=== PATIENT | male | born 1975 | race African-American/Black ===

== ENCOUNTER 2020-04-02 17:10 | Inpatient (IN) ==
[2020-04-02 18:28] LABS: Hematocrit 36 % (42-52); Hemoglobin 12.3 g/dL (14.0-18.0); Mean Corpuscular HGB Conc 34 g/dL (31-36); Mean Corpuscular Hemoglobin 29 pg (27-31); Mean Corpuscular Volume 85 fL (80-94); Mean Platelet Volume 7.9 fL (7.4-10.4); Platelet Count 361 10^3/uL (150-450); Red Blood Count 4.22 10^6 /uL (4.18-5.48); Red Cell Distribution Width 15 % (10-15); White Blood Count 22.4 10^3/uL (3.5-10.8)
[2020-04-02 18:37] LABS: INR 1.13 (0.82-1.09)
[2020-04-02 18:50] LABS: Troponin I 0.04 ng/mL (<0.03)
[2020-04-02 18:56] LABS: ALT 17 U/L (7-52); Albumin 2.8 g/dL (3.2-5.2); Albumin/Globulin Ratio 0.6 (1-3); Alkaline Phosphatase 80 U/L (34-104); BUN/Creatinine Ratio 26.4 (8-20); Blood Urea Nitrogen 28 mg/dL (6-24); CO2 Carbon Dioxide 23 mmol/L (22-32); Calcium 8.3 mg/dL (8.6-10.3); Chloride 105 mmol/L (101-111); EGFR African American 91.4 (>60); EGFR Non-African American 75.5 (>60); Globulin 4.8 g/dL (2-4); Glucose 101 mg/dL (70-100); Sodium 135 mmol/L (135-145); Total Protein 7.6 g/dL (6.4-8.9)
[2020-04-02 19:10] LABS: Anion Gap 7 mmol/L (2-11)
[2020-04-02 19:41] LABS: ABS Basophils 0.2 10^3/ul (0-0.2); ABS Eosinophils 0.3 10^3/ul (0-0.6); ABS Monocytes 2.2 10^3/ul (0-0.8); ABS Neutrophils 17.8 10^3/ul (1.5-7.7); Eosinophil % 1.4 %; Lymphocyte % 8.9 %
[2020-04-02] MEDS ORDERED: Furosemide 40 mg/4 ml IV VIAL IV ONE (21:42)
[2020-04-02] MEDS ORDERED: Piperacillin/Tazobac ADVAN 3.375 GM in NS 0.9% 100 ml BAG 100 ML IVPB ONE (21:43)
[2020-04-02] MEDS ORDERED: hydrALAZINE 20 mg/ml 1 ML Vial IV IV SLOW PU PRN (21:48)
[2020-04-02] MEDS ORDERED: Al Hydrox/Mg Hydrox/Simet LIQ 30 ML UDC PO PRN (21:49)
[2020-04-02] MEDS ORDERED: Zosyn per Pharmacy NOTE FOLLOW UP SCH (22:00)
[2020-04-02] MEDS ORDERED: Iohexol 350 (CONTRAST) 500 ML MDV IV ONE (22:41)
[2020-04-03] MEDS: Heparin 5000 UNITS/ML 1 mL VIAL SUBCUT SCH ×4 (00:56→20:57)
[2020-04-03] MEDS: Albuterol/Ipratropium NEB.SOL (2.5/0.5 MG) 3 ML NEB.SOLN INH PRN ×3 (01:18→19:19)
[2020-04-03] MEDS: ZOSYN 3.375 GM Q8H per EXTENDED INFUSION IV SCH ×3 (02:11→17:45)
[2020-04-03] MEDS: Labetalol IV 5 MG/ML 20 ml VIAL IV PUSH PRN ×2 (03:21→08:22)
[2020-04-03 04:00] LABS: Hematocrit 35 % (42-52); Hemoglobin 11.6 g/dL (14.0-18.0); Mean Corpuscular HGB Conc 33 g/dL (31-36); Mean Corpuscular Hemoglobin 28 pg (27-31); Mean Corpuscular Volume 85 fL (80-94); Mean Platelet Volume 7.7 fL (7.4-10.4); Platelet Count 377 10^3/uL (150-450); Red Cell Distribution Width 15 % (10-15); White Blood Count 21.9 10^3/uL (3.5-10.8)
[2020-04-03 04:05] LABS: ABS Basophils 0.1 10^3/ul (0-0.2); ABS Eosinophils 0.3 10^3/ul (0-0.6); ABS Lymphocytes 1.8 10^3/ul (1.0-4.8); ABS Monocytes 2.2 10^3/ul (0-0.8); ABS Neutrophils 17.5 10^3/ul (1.5-7.7); Eosinophil % 1.3 %; Lymphocyte % 8.2 %; Nucleated Red Blood Cells % 0.1
[2020-04-03 04:35] LABS: Troponin I 0.04 ng/mL (<0.03)
[2020-04-03 05:13] LABS: Potassium 4.1 mmol/L (3.5-5.0)
[2020-04-03 05:19] LABS: BUN/Creatinine Ratio 24.3 (8-20); EGFR African American 90.4 (>60); EGFR Non-African American 74.7 (>60)
[2020-04-03] MEDS: hydrALAZINE 20 mg/ml 1 ML Vial IV IV SLOW PU PRN ×3 (05:30→23:19)
[2020-04-03 08:36] LABS: Magnesium 2.4 mg/dL (1.9-2.7)
[2020-04-03] MEDS ORDERED: Furosemide 100 mg/10 ml IV VIAL ONE (11:21)
[2020-04-03 15:26] LABS: BUN/Creatinine Ratio 24.6 (8-20); Blood Urea Nitrogen 29 mg/dL (6-24); CO2 Carbon Dioxide 25 mmol/L (22-32); Calcium 8.2 mg/dL (8.6-10.3); Chloride 105 mmol/L (101-111); EGFR African American 80.8 (>60); EGFR Non-African American 66.8 (>60); Glucose 121 mg/dL (70-100); Magnesium 2.5 mg/dL (1.9-2.7); Sodium 136 mmol/L (135-145)
[2020-04-03] MEDS ORDERED: Furosemide 100 mg/10 ml IV VIAL IV ONE (18:18)
[2020-04-03 19:30] LABS: Anion Gap 6 mmol/L (2-11)
[2020-04-04] MEDS: ZOSYN 3.375 GM Q8H per EXTENDED INFUSION IV SCH ×3 (02:33→17:36)
[2020-04-04] MEDS: Heparin 5000 UNITS/ML 1 mL VIAL SUBCUT SCH ×3 (05:26→21:57)
[2020-04-04] MEDS: hydrALAZINE 20 mg/ml 1 ML Vial IV IV SLOW PU PRN ×3 (05:42→23:23)
[2020-04-04 06:36] LABS: ABS Basophils 0.1 10^3/ul (0-0.2); ABS Eosinophils 0.4 10^3/ul (0-0.6); ABS Lymphocytes 1.3 10^3/ul (1.0-4.8); ABS Monocytes 2.6 10^3/ul (0-0.8); ABS Neutrophils 19.9 10^3/ul (1.5-7.7); Eosinophil % 1.7 %; Hematocrit 35 % (42-52); Hemoglobin 11.8 g/dL (14.0-18.0); Lymphocyte % 5.5 %; Mean Corpuscular HGB Conc 34 g/dL (31-36); Mean Corpuscular Hemoglobin 29 pg (27-31); Mean Corpuscular Volume 86 fL (80-94); Nucleated Red Blood Cells % 0.1; Platelet Count 378 10^3/uL (150-450); Red Blood Count 4.08 10^6 /uL (4.18-5.48); Red Cell Distribution Width 15 % (10-15); White Blood Count 24.4 10^3/uL (3.5-10.8)
[2020-04-04 06:52] LABS: Potassium 5.1 mmol/L (3.5-5.0)
[2020-04-04 06:58] LABS: Calcium 7.8 mg/dL (8.6-10.3)
[2020-04-04 07:04] LABS: BUN/Creatinine Ratio 27.1 (8-20); EGFR African American 80.8 (>60); EGFR Non-African American 66.8 (>60)
[2020-04-04] MEDS ORDERED: Furosemide 40 mg/4 ml IV VIAL IV SLOW PU ONE (08:46)
[2020-04-04] MEDS: Albuterol/Ipratropium NEB.SOL (2.5/0.5 MG) 3 ML NEB.SOLN INH SCH ×3 (09:32→19:18)
[2020-04-04 09:34] LABS: Magnesium 2.4 mg/dL (1.9-2.7)
[2020-04-04] MEDS: methylPREDNISolone SOD 40 mg/ml 1 ml VIAL IV SCH ×2 (09:42→17:36)
[2020-04-04] MEDS ORDERED: Perflutren Lipid Microsphere 3 ML VIAL ONE (10:31)
[2020-04-04] MEDS: Labetalol IV 5 MG/ML 20 ml VIAL IV PUSH PRN (11:39)
[2020-04-04] MEDS ORDERED: Morphine 10 MG/ML VIAL (1 ml) IV ONE (11:50)
[2020-04-04] MEDS ORDERED: Morphine 10 MG/ML VIAL (1 ml) ONE (11:51)
[2020-04-04 18:16] LABS: BUN/Creatinine Ratio 27.9 (8-20); Calcium 8.3 mg/dL (8.6-10.3); EGFR African American 68.6 (>60); EGFR Non-African American 56.7 (>60)
[2020-04-04] MEDS: Albuterol/Ipratropium NEB.SOL (2.5/0.5 MG) 3 ML NEB.SOLN INH PRN (22:32)
[2020-04-05] MEDS: Albuterol/Ipratropium NEB.SOL (2.5/0.5 MG) 3 ML NEB.SOLN INH SCH ×4 (01:00→19:24)
[2020-04-05] MEDS: ZOSYN 3.375 GM Q8H per EXTENDED INFUSION IV SCH ×3 (01:33→17:42)
[2020-04-05] MEDS: methylPREDNISolone SOD 40 mg/ml 1 ml VIAL IV SCH ×3 (01:34→13:34)
[2020-04-05] MEDS: Heparin 5000 UNITS/ML 1 mL VIAL SUBCUT SCH ×3 (05:14→21:45)
[2020-04-05 05:37] LABS: Hematocrit 35 % (42-52); Hemoglobin 11.8 g/dL (14.0-18.0); Mean Corpuscular HGB Conc 33 g/dL (31-36); Mean Corpuscular Hemoglobin 29 pg (27-31); Mean Corpuscular Volume 86 fL (80-94); Mean Platelet Volume 7.9 fL (7.4-10.4); Platelet Count 370 10^3/uL (150-450); Red Blood Count 4.13 10^6 /uL (4.18-5.48); Red Cell Distribution Width 15 % (10-15); White Blood Count 26.2 10^3/uL (3.5-10.8)
[2020-04-05 05:41] LABS: ABS Basophils 0.1 10^3/ul (0-0.2); ABS Lymphocytes 0.8 10^3/ul (1.0-4.8); ABS Monocytes 1.7 10^3/ul (0-0.8); ABS Neutrophils 23.7 10^3/ul (1.5-7.7)
[2020-04-05 05:52] LABS: Albumin 2.7 g/dL (3.2-5.2); Albumin/Globulin Ratio 0.6 (1-3); BUN/Creatinine Ratio 29.7 (8-20); Calcium 8.3 mg/dL (8.6-10.3); EGFR African American 54.9 (>60); EGFR Non-African American 45.3 (>60); Globulin 4.7 g/dL (2-4); Magnesium 2.7 mg/dL (1.9-2.7); Total Bilirubin 0.3 mg/dL (0.2-1.0); Total Protein 7.4 g/dL (6.4-8.9)
[2020-04-05 06:13] LABS: Potassium 5.4 mmol/L (3.5-5.0)
[2020-04-05] MEDS: Azithromycin 500 mg/250 ml NS 500 MG/250 ML BAG IVPB SCH (11:05)
[2020-04-05] MEDS: Acetylcysteine INHALATION SOL 200 MG/ML NEB.SOLN 10 ML INH SCH ×2 (13:17→19:10)
[2020-04-05] MEDS ORDERED: Metoprolol Tartrate 5 mg VIAL 5 ml VIAL (1 mg/ml) IV ONE (15:56)
[2020-04-05] MEDS: Linezolid 600 MG IVPREMIX(*) 600 MG/300 ML BAG IVPB SCH (21:45)
[2020-04-06] MEDS: ZOSYN 3.375 GM Q8H per EXTENDED INFUSION IV SCH ×3 (02:01→16:56)
[2020-04-06] MEDS: methylPREDNISolone SOD 40 mg/ml 1 ml VIAL IV SCH (02:01)
[2020-04-06] MEDS: Acetylcysteine INHALATION SOL 200 MG/ML NEB.SOLN 10 ML INH SCH ×4 (02:05→20:14)
[2020-04-06] MEDS: Albuterol/Ipratropium NEB.SOL (2.5/0.5 MG) 3 ML NEB.SOLN INH SCH ×4 (02:05→20:13)
[2020-04-06] MEDS: Heparin 5000 UNITS/ML 1 mL VIAL SUBCUT SCH ×3 (06:00→21:12)
[2020-04-06 08:24] LABS: Hematocrit 35 % (42-52); Hemoglobin 11.6 g/dL (14.0-18.0); Mean Corpuscular HGB Conc 33 g/dL (31-36); Mean Corpuscular Hemoglobin 29 pg (27-31); Mean Corpuscular Volume 87 fL (80-94); Mean Platelet Volume 7.9 fL (7.4-10.4); Platelet Count 439 10^3/uL (150-450); Red Blood Count 4.03 10^6 /uL (4.18-5.48); Red Cell Distribution Width 15 % (10-15); White Blood Count 25.6 10^3/uL (3.5-10.8)
[2020-04-06 08:46] LABS: Albumin 2.7 g/dL (3.2-5.2); Albumin/Globulin Ratio 0.5 (1-3); BUN/Creatinine Ratio 36.9 (8-20); Calcium 8.4 mg/dL (8.6-10.3); EGFR African American 53.7 (>60); EGFR Non-African American 44.4 (>60); Magnesium 2.8 mg/dL (1.9-2.7); Potassium 4.9 mmol/L (3.5-5.0); Total Bilirubin 0.3 mg/dL (0.2-1.0); Total Protein 7.7 g/dL (6.4-8.9)
[2020-04-06] MEDS: Linezolid 600 MG IVPREMIX(*) 600 MG/300 ML BAG IVPB SCH ×2 (08:51→21:08)
[2020-04-06 09:01] LABS: ABS Basophils 0.2 10^3/ul (0-0.2); ABS Lymphocytes 0.9 10^3/ul (1.0-4.8); ABS Monocytes 2.1 10^3/ul (0-0.8); ABS Neutrophils 22.5 10^3/ul (1.5-7.7); Eosinophil % 0.1 %; Lymphocyte % 3.3 %
[2020-04-06] MEDS: Azithromycin 500 mg/250 ml NS 500 MG/250 ML BAG IVPB SCH (11:03)
[2020-04-06] MEDS: hydrALAZINE 20 mg/ml 1 ML Vial IV IV SLOW PU PRN ×2 (15:57→19:50)
[2020-04-06] MEDS: Metoprolol Tartrate 5 mg VIAL 5 ml VIAL (1 mg/ml) IV PRN (17:26)
[2020-04-07] MEDS: hydrALAZINE 20 mg/ml 1 ML Vial IV IV SLOW PU PRN (00:22)
[2020-04-07] MEDS: ZOSYN 3.375 GM Q8H per EXTENDED INFUSION IV SCH ×3 (01:20→18:19)
[2020-04-07] MEDS: Heparin 5000 UNITS/ML 1 mL VIAL SUBCUT SCH ×3 (05:36→22:53)
[2020-04-07 05:58] LABS: Hematocrit 34 % (42-52); Mean Corpuscular HGB Conc 33 g/dL (31-36); Mean Corpuscular Hemoglobin 28 pg (27-31); Mean Corpuscular Volume 86 fL (80-94); Mean Platelet Volume 8.1 fL (7.4-10.4); Platelet Count 437 10^3/uL (150-450); Red Blood Count 3.92 10^6 /uL (4.18-5.48); Red Cell Distribution Width 15 % (10-15)
[2020-04-07 06:04] LABS: ABS Basophils 0.1 10^3/ul (0-0.2); ABS Eosinophils 0.1 10^3/ul (0-0.6); ABS Lymphocytes 1.4 10^3/ul (1.0-4.8); ABS Monocytes 2.8 10^3/ul (0-0.8); ABS Neutrophils 14.7 10^3/ul (1.5-7.7); Eosinophil % 0.5 %; Lymphocyte % 7.2 %
[2020-04-07] MEDS: Metoprolol Tartrate 5 mg VIAL 5 ml VIAL (1 mg/ml) IV PRN (06:06)
[2020-04-07] MEDS: Albuterol/Ipratropium NEB.SOL (2.5/0.5 MG) 3 ML NEB.SOLN INH SCH ×4 (06:13→19:29)
[2020-04-07] MEDS: Acetylcysteine INHALATION SOL 200 MG/ML NEB.SOLN 10 ML INH SCH ×4 (06:13→19:29)
[2020-04-07 06:14] LABS: Albumin 2.5 g/dL (3.2-5.2); Calcium 8.3 mg/dL (8.6-10.3); Magnesium 3.1 mg/dL (1.9-2.7); Potassium 4.6 mmol/L (3.5-5.0); Total Bilirubin 0.3 mg/dL (0.2-1.0)
[2020-04-07 06:20] LABS: Albumin/Globulin Ratio 0.6 (1-3); BUN/Creatinine Ratio 45.1 (8-20); EGFR African American 64.2 (>60); Globulin 4.5 g/dL (2-4); Phosphorus 4.9 mg/dL (2.5-5.0)
[2020-04-07] MEDS: Linezolid 600 MG IVPREMIX(*) 600 MG/300 ML BAG IVPB SCH ×2 (08:46→20:46)
[2020-04-07] MEDS: Azithromycin 500 mg/250 ml NS 500 MG/250 ML BAG IVPB SCH (11:13)
[2020-04-08] MEDS: hydrALAZINE 20 mg/ml 1 ML Vial IV IV SLOW PU PRN ×2 (00:26→10:38)
[2020-04-08] MEDS: Acetylcysteine INHALATION SOL 200 MG/ML NEB.SOLN 10 ML INH SCH ×4 (01:44→19:00)
[2020-04-08] MEDS: Albuterol/Ipratropium NEB.SOL (2.5/0.5 MG) 3 ML NEB.SOLN INH SCH ×4 (01:44→19:00)
[2020-04-08] MEDS: ZOSYN 3.375 GM Q8H per EXTENDED INFUSION IV SCH ×3 (02:26→18:39)
[2020-04-08 04:47] LABS: Hematocrit 33 % (42-52); Hemoglobin 10.9 g/dL (14.0-18.0); Mean Corpuscular HGB Conc 33 g/dL (31-36); Mean Corpuscular Hemoglobin 29 pg (27-31); Mean Corpuscular Volume 86 fL (80-94); Mean Platelet Volume 8.1 fL (7.4-10.4); Platelet Count 421 10^3/uL (150-450); Red Blood Count 3.79 10^6 /uL (4.18-5.48); Red Cell Distribution Width 15 % (10-15); White Blood Count 19.2 10^3/uL (3.5-10.8)
[2020-04-08 05:03] LABS: ALT 61 U/L (7-52); AST 42 U/L (13-39); Albumin 2.6 g/dL (3.2-5.2); Albumin/Globulin Ratio 0.6 (1-3); Alkaline Phosphatase 71 U/L (34-104); Anion Gap 5 mmol/L (2-11); BUN/Creatinine Ratio 40.9 (8-20); Blood Urea Nitrogen 52 mg/dL (6-24); CO2 Carbon Dioxide 25 mmol/L (22-32); Chloride 109 mmol/L (101-111); EGFR African American 74.2 (>60); EGFR Non-African American 61.3 (>60); Globulin 4.2 g/dL (2-4); Glucose 110 mg/dL (70-100); Magnesium 3.1 mg/dL (1.9-2.7); Phosphorus 4.2 mg/dL (2.5-5.0); Rheumatoid Factor < 10 IU/mL (<15); Sodium 139 mmol/L (135-145); Total Protein 6.8 g/dL (6.4-8.9)
[2020-04-08 05:40] LABS: HIV 4th Generation Nonreactive (Nonreactive)
[2020-04-08] MEDS: Heparin 5000 UNITS/ML 1 mL VIAL SUBCUT SCH ×3 (06:00→21:25)
[2020-04-08] MEDS ORDERED: Rocuronium 50 mg VIAL 10 mg/ml 5 ml VIAL (50 mg) ONE ×2 (08:15→09:22)
[2020-04-08 08:55] LABS: ABS Basophils 0.1 10^3/ul (0-0.2); ABS Eosinophils 0.2 10^3/ul (0-0.6); ABS Lymphocytes 2.1 10^3/ul (1.0-4.8); ABS Monocytes 2.8 10^3/ul (0-0.8); Lymphocyte % 10.9 %
[2020-04-08] MEDS: Linezolid 600 MG IVPREMIX(*) 600 MG/300 ML BAG IVPB SCH ×2 (09:33→21:22)
[2020-04-08] MEDS ORDERED: Midazolam 2 mg/2 ml VIAL 1 mg/ml 2 ml VIAL (2 mg) ONE (10:14)
[2020-04-08] MEDS: Azithromycin 500 mg/250 ml NS 500 MG/250 ML BAG IVPB SCH (11:25)
[2020-04-08] MEDS ORDERED: Glycopyrrolate IV 0.2 MG/ML 1 ML VIAL ONE (12:08)
[2020-04-08] MEDS ORDERED: Lidocaine 2% PF 10 ML AMP ONE ×3 (12:12→12:46)
[2020-04-08] MEDS ORDERED: Propofol 10 MG/ML 20 ML BTL ONE (12:16)
[2020-04-08] MEDS ORDERED: Benzocaine/Butamben/Tetracain (CETACAINE - SINGLE USE) 5 gm TOPICAL ONE (12:46)
[2020-04-08] MEDS ORDERED: Lidocaine 2% JELLY 20 ML (for OR use) ONE (12:46)
[2020-04-08] MEDS ORDERED: Lidocaine 1% VIAL 10 MG/ML VIAL ONE (12:46)
[2020-04-08] MEDS ORDERED: Sugammadex 500 MG/5 ML 5 ml VIAL IV PUSH ONE (15:05)
[2020-04-08] MEDS ORDERED: Ondansetron 4 mg VIAL 2 MG/ML 2 ml VIAL ONE (15:05)
[2020-04-08 23:59] LABS: Adenovirus Negative (Negative); Bordetella parapertussis Negative (Negative); Bordetella pertussis Negative (Negative); Chlamydophila pneumoniae Negative (Negative); Coronavirus 229E Negative (Negative); Coronavirus HKU1 Negative (Negative); Coronavirus NL63 Negative (Negative); Coronavirus OC43 Negative (Negative); Human Metapneumovirus Negative (Negative); Human Rhinovirus/ Enterovirus Negative (Negative); Influenza A Negative (Negative); Influenza B Negative (Negative); Mycoplasmoides pneumoniae Negative (Negative); Parainfluenza Virus 1 Negative (Negative); Parainfluenza Virus 2 Negative (Negative); Parainfluenza Virus 3 Negative (Negative); Parainfluenza Virus 4 Negative (Negative); Respiratory Syncytial Virus Negative (Negative); Specimen Source NASOPHARYNGEAL SWAB
[2020-04-09] MEDS: Acetylcysteine INHALATION SOL 200 MG/ML NEB.SOLN 10 ML INH SCH ×2 (01:21→07:31)
[2020-04-09] MEDS: Albuterol/Ipratropium NEB.SOL (2.5/0.5 MG) 3 ML NEB.SOLN INH SCH ×4 (01:21→19:16)
[2020-04-09] MEDS: ZOSYN 3.375 GM Q8H per EXTENDED INFUSION IV SCH ×3 (02:03→17:27)
[2020-04-09] MEDS: Heparin 5000 UNITS/ML 1 mL VIAL SUBCUT SCH ×2 (04:57→13:33)
[2020-04-09 06:24] LABS: Hematocrit 32 % (42-52); Hemoglobin 10.4 g/dL (14.0-18.0); Mean Corpuscular HGB Conc 33 g/dL (31-36); Mean Corpuscular Hemoglobin 29 pg (27-31); Mean Corpuscular Volume 88 fL (80-94); Platelet Count 388 10^3/uL (150-450); Red Blood Count 3.64 10^6 /uL (4.18-5.48); Red Cell Distribution Width 15 % (10-15); White Blood Count 17.1 10^3/uL (3.5-10.8)
[2020-04-09 06:41] LABS: ABS Basophils 0.1 10^3/ul (0-0.2); ABS Eosinophils 0.4 10^3/ul (0-0.6); ABS Monocytes 2.3 10^3/ul (0-0.8); ABS Neutrophils 12.3 10^3/ul (1.5-7.7); Albumin 2.4 g/dL (3.2-5.2); Albumin/Globulin Ratio 0.6 (1-3); BUN/Creatinine Ratio 33.1 (8-20); Calcium 7.5 mg/dL (8.6-10.3); EGFR African American 72.2 (>60); EGFR Non-African American 59.7 (>60); Eosinophil % 2.1 %; Globulin 4.1 g/dL (2-4); Lymphocyte % 11.9 %; Magnesium 2.9 mg/dL (1.9-2.7); Phosphorus 3.9 mg/dL (2.5-5.0); Potassium 4.5 mmol/L (3.5-5.0); Total Bilirubin 0.2 mg/dL (0.2-1.0); Total Protein 6.5 g/dL (6.4-8.9)
[2020-04-09] MEDS ORDERED: Calcium Gluconate 1 GM in NS 0.9% 50 ML 50 ML IV ONE (08:31)
[2020-04-09] MEDS: Linezolid 600 MG IVPREMIX(*) 600 MG/300 ML BAG IVPB SCH (09:02)
[2020-04-09 09:15] LABS: Body Fluid Source OTH
[2020-04-09] MEDS: hydrALAZINE 20 mg/ml 1 ML Vial IV IV SLOW PU PRN (09:20)
[2020-04-09 10:29] LABS: Body Fluid Mono 17 %; Body Fluid Other Cells 25
[2020-04-09] MEDS: Azithromycin 500 mg/250 ml NS 500 MG/250 ML BAG IVPB SCH (10:43)
[2020-04-09 15:28] LABS: Anti SSA/RO Antibody 3.1 U; SS-B/La Antibody 0.2 U; Sm (Smith) IgG Antibody <0.2 U
[2020-04-09] MEDS: Metoprolol Tartrate 5 mg VIAL 5 ml VIAL (1 mg/ml) IV PRN (18:09)
[2020-04-10] MEDS: Linezolid 600 MG IVPREMIX(*) 600 MG/300 ML BAG IVPB SCH (00:03)
[2020-04-10] MEDS: Heparin 5000 UNITS/ML 1 mL VIAL SUBCUT SCH ×4 (00:06→21:38)
[2020-04-10] MEDS: Albuterol/Ipratropium NEB.SOL (2.5/0.5 MG) 3 ML NEB.SOLN INH SCH ×2 (01:03→08:08)
[2020-04-10] MEDS: ZOSYN 3.375 GM Q8H per EXTENDED INFUSION IV SCH ×2 (01:22→10:34)
[2020-04-10 05:51] LABS: Hematocrit 33 % (42-52); Hemoglobin 10.9 g/dL (14.0-18.0); Mean Corpuscular HGB Conc 33 g/dL (31-36); Mean Corpuscular Hemoglobin 29 pg (27-31); Mean Corpuscular Volume 87 fL (80-94); Mean Platelet Volume 7.7 fL (7.4-10.4); Platelet Count 389 10^3/uL (150-450); Red Blood Count 3.78 10^6 /uL (4.18-5.48); Red Cell Distribution Width 15 % (10-15); White Blood Count 22.2 10^3/uL (3.5-10.8)
[2020-04-10 06:08] LABS: Albumin 2.6 g/dL (3.2-5.2); Albumin/Globulin Ratio 0.6 (1-3); BUN/Creatinine Ratio 29.4 (8-20); EGFR African American 74.9 (>60); EGFR Non-African American 61.9 (>60); Globulin 4.1 g/dL (2-4); Potassium 4.7 mmol/L (3.5-5.0); Total Bilirubin 0.3 mg/dL (0.2-1.0); Total Protein 6.7 g/dL (6.4-8.9)
[2020-04-10 06:22] LABS: ABS Basophils 0.1 10^3/ul (0-0.2); ABS Eosinophils 0.5 10^3/ul (0-0.6); ABS Lymphocytes 2.6 10^3/ul (1.0-4.8); ABS Monocytes 2.6 10^3/ul (0-0.8); ABS Neutrophils 16.4 10^3/ul (1.5-7.7); Eosinophil % 2.2 %; Lymphocyte % 11.8 %
[2020-04-10] MEDS ORDERED: Albuterol 2.5mg/3 ml (0.083%) NEB.SOLN INH PRN (08:02)
[2020-04-10] MEDS: SPIRIVA Respimat (tiotropium) 2.5 mcg/inh Inhaler INH SCH (08:34)
[2020-04-10] MEDS ORDERED: Linezolid 600 MG IVPREMIX(*) 600 MG/300 ML BAG IVPB SCH (12:00)
[2020-04-10] MEDS: Furosemide 40 mg/4 ml IV VIAL IV SLOW PU SCH (12:18)
[2020-04-10 12:28] LABS: Cyclic Citrullinated Pept IgG <15.6 U
[2020-04-11] MEDS: Heparin 5000 UNITS/ML 1 mL VIAL SUBCUT SCH ×3 (05:28→22:00)
[2020-04-11 05:40] LABS: Hematocrit 34 % (42-52); Hemoglobin 10.9 g/dL (14.0-18.0); Mean Corpuscular HGB Conc 32 g/dL (31-36); Mean Corpuscular Hemoglobin 28 pg (27-31); Mean Corpuscular Volume 87 fL (80-94); Mean Platelet Volume 7.7 fL (7.4-10.4); Platelet Count 368 10^3/uL (150-450); Red Blood Count 3.89 10^6 /uL (4.18-5.48); Red Cell Distribution Width 15 % (10-15); White Blood Count 18.6 10^3/uL (3.5-10.8)
[2020-04-11 05:57] LABS: Albumin 2.7 g/dL (3.2-5.2); Albumin/Globulin Ratio 0.7 (1-3); BUN/Creatinine Ratio 27.4 (8-20); Calcium 8.1 mg/dL (8.6-10.3); EGFR African American 81.6 (>60); EGFR Non-African American 67.4 (>60); Magnesium 2.7 mg/dL (1.9-2.7); Potassium 4.8 mmol/L (3.5-5.0); Total Bilirubin 0.3 mg/dL (0.2-1.0); Total Protein 6.7 g/dL (6.4-8.9)
[2020-04-11 06:02] LABS: ABS Basophils 0.1 10^3/ul (0-0.2); ABS Eosinophils 0.5 10^3/ul (0-0.6); ABS Lymphocytes 2.5 10^3/ul (1.0-4.8); ABS Monocytes 2.3 10^3/ul (0-0.8); ABS Neutrophils 13.2 10^3/ul (1.5-7.7); Eosinophil % 2.6 %; Lymphocyte % 13.4 %
[2020-04-11] MEDS: SPIRIVA Respimat (tiotropium) 2.5 mcg/inh Inhaler INH SCH (07:31)
[2020-04-11] MEDS: Furosemide 40 mg/4 ml IV VIAL IV SLOW PU SCH ×2 (07:49→08:43)
[2020-04-11] MEDS ORDERED: hydrALAZINE 20 mg/ml 1 ML Vial IV IV SLOW PU ONE (17:38)
[2020-04-11] MEDS: Metoprolol Tartrate 5 mg VIAL 5 ml VIAL (1 mg/ml) IV PRN (18:59)
[2020-04-12] MEDS: Heparin 5000 UNITS/ML 1 mL VIAL SUBCUT SCH ×3 (05:30→21:18)
[2020-04-12 05:57] LABS: BUN/Creatinine Ratio 23.9 (8-20); Calcium 8.4 mg/dL (8.6-10.3); EGFR African American 81.6 (>60); EGFR Non-African American 67.4 (>60); Potassium 4.6 mmol/L (3.5-5.0)
[2020-04-12] MEDS: SPIRIVA Respimat (tiotropium) 2.5 mcg/inh Inhaler INH SCH (07:10)
[2020-04-12] MEDS: Furosemide 40 mg/4 ml IV VIAL IV SLOW PU SCH ×3 (07:18→14:13)
[2020-04-12] MEDS: Metoprolol Tartrate 5 mg VIAL 5 ml VIAL (1 mg/ml) IV PRN (12:11)
[2020-04-12] MEDS ORDERED: hydrALAZINE 20 mg/ml 1 ML Vial IV IV SLOW PU ONE (13:28)
[2020-04-12 15:42] LABS: Urine Appearance Clear; Urine Bilirubin Negative (Negative); Urine Blood 3+ (Negative); Urine Color Straw; Urine Glucose Negative (Negative); Urine Ketones Negative (Negative); Urine Nitrite Negative (Negative); Urine Protein 2+(100 mg/dL) (Negative); Urine Specific Gravity 1.006 (1.010-1.030); Urine Urobilinogen Negative (Negative)
[2020-04-12 15:47] LABS: Urine Bacteria Absent (Absent); Urine Red Blood Cell 3+(>10/hpf) (Absent); Urine Squamous Epithelial Cell Present (Absent); Urine White Blood Cell 3+(>20/hpf) (Absent)
[2020-04-12] MEDS ORDERED: hydrALAZINE 20 mg/ml 1 ML Vial IV IV SLOW PU PRN (17:15)
[2020-04-12 17:18] LABS: Magnesium 2.6 mg/dL (1.9-2.7)
[2020-04-12 20:29] LABS: BUN/Creatinine Ratio 23.5 (8-20); Calcium 8.1 mg/dL (8.6-10.3); EGFR Non-African American 66.1 (>60); Magnesium 2.3 mg/dL (1.9-2.7); Potassium 4.3 mmol/L (3.5-5.0)
[2020-04-13] MEDS: Heparin 5000 UNITS/ML 1 mL VIAL SUBCUT SCH ×3 (05:37→22:04)
[2020-04-13] MEDS: SPIRIVA Respimat (tiotropium) 2.5 mcg/inh Inhaler INH SCH (07:54)
[2020-04-13] MEDS: Furosemide 40 mg/4 ml IV VIAL IV SLOW PU SCH ×2 (07:55→14:06)
[2020-04-13 10:38] LABS: TSH Ultra Thyroid Stim Horm 3.83 mcIU/mL (0.34-5.60)
[2020-04-13 10:39] LABS: Free T3 2.8 pg/mL (2.5-3.9)
[2020-04-13 10:40] LABS: Free T4 0.98 ng/dL (0.61-1.12)
[2020-04-14] MEDS: Heparin 5000 UNITS/ML 1 mL VIAL SUBCUT SCH ×3 (05:35→22:22)
[2020-04-14 06:27] LABS: BUN/Creatinine Ratio 22.8 (8-20); Calcium 7.6 mg/dL (8.6-10.3); EGFR African American 96.7 (>60); EGFR Non-African American 79.9 (>60); Magnesium 1.8 mg/dL (1.9-2.7); Potassium 3.8 mmol/L (3.5-5.0)
[2020-04-14] MEDS ORDERED: Magnesium Sulfate 2 gm BAG 2 GM/50 ML BAG IVPB ONE (06:39)
[2020-04-14] MEDS ORDERED: Potassium Chlor 20 meq TAB.ER PO ONE (06:39)
[2020-04-14 08:33] LABS: Troponin I 0.01 ng/mL (<0.03)
[2020-04-14] MEDS: SPIRIVA Respimat (tiotropium) 2.5 mcg/inh Inhaler INH SCH (08:49)
[2020-04-14] MEDS: Furosemide 40 mg/4 ml IV VIAL IV SLOW PU SCH ×2 (09:50→15:13)
[2020-04-14 11:06] LABS: HDL Cholesterol 31.2 mg/dL
[2020-04-15] MEDS: Heparin 5000 UNITS/ML 1 mL VIAL SUBCUT SCH ×3 (05:46→22:40)
[2020-04-15 06:15] LABS: Hematocrit 35 % (42-52); Hemoglobin 11.4 g/dL (14.0-18.0); Mean Corpuscular HGB Conc 33 g/dL (31-36); Mean Corpuscular Hemoglobin 28 pg (27-31); Mean Corpuscular Volume 86 fL (80-94); Mean Platelet Volume 7.8 fL (7.4-10.4); Platelet Count 361 10^3/uL (150-450); Red Blood Count 4.04 10^6 /uL (4.18-5.48); Red Cell Distribution Width 15 % (10-15); White Blood Count 20.5 10^3/uL (3.5-10.8)
[2020-04-15 06:21] LABS: ABS Basophils 0.1 10^3/ul (0-0.2); ABS Eosinophils 0.3 10^3/ul (0-0.6); ABS Lymphocytes 3.8 10^3/ul (1.0-4.8); ABS Monocytes 2.3 10^3/ul (0-0.8); Eosinophil % 1.5 %; Lymphocyte % 18.4 %
[2020-04-15 06:37] LABS: BUN/Creatinine Ratio 22.9 (8-20); Calcium 8.3 mg/dL (8.6-10.3); EGFR African American 92.4 (>60); EGFR Non-African American 76.4 (>60); Magnesium 2.3 mg/dL (1.9-2.7)
[2020-04-15] MEDS: SPIRIVA Respimat (tiotropium) 2.5 mcg/inh Inhaler INH SCH (08:04)
[2020-04-15] MEDS ORDERED: Aminophylline 25 MG/ML VIAL ONE (11:11)
[2020-04-15] MEDS ORDERED: Regadenoson 0.4 MG/5 ML SYRINGE ONE (11:11)
[2020-04-15] MEDS: Furosemide 40 mg/4 ml IV VIAL IV SLOW PU SCH ×2 (13:14→13:16)
[2020-04-15 16:31] LABS: Plasma Free Metanephrine 0.2 nmol/L (<0.50); Plasma Free Normetanephrine 0.51 nmol/L (<0.90)
[2020-04-15] MEDS ORDERED: Aspirin EC 81 mg TAB.EC (enteric coated) PO SCH (19:00)
[2020-04-15] MEDS: Aspirin EC 81 mg TAB.EC (enteric coated) PO SCH (22:40)
[2020-04-16] MEDS: Heparin 5000 UNITS/ML 1 mL VIAL SUBCUT SCH ×3 (06:32→20:24)
[2020-04-16 06:58] LABS: BUN/Creatinine Ratio 21.8 (8-20); Calcium 8.4 mg/dL (8.6-10.3); EGFR Non-African American 66.1 (>60); Magnesium 2.1 mg/dL (1.9-2.7); Potassium 3.8 mmol/L (3.5-5.0)
[2020-04-16] MEDS: Aspirin EC 81 mg TAB.EC (enteric coated) PO SCH (08:19)
[2020-04-16] MEDS: SPIRIVA Respimat (tiotropium) 2.5 mcg/inh Inhaler INH SCH (10:03)
[2020-04-17] MEDS: Heparin 5000 UNITS/ML 1 mL VIAL SUBCUT SCH (05:23)
[2020-04-17] MEDS: Aspirin EC 81 mg TAB.EC (enteric coated) PO SCH (09:18)
[2020-04-17] MEDS: SPIRIVA Respimat (tiotropium) 2.5 mcg/inh Inhaler INH SCH (09:32)
[2020-04-17 12:16] VITALS: BP 143/75
== END 2020-04-17 12:31 | disposition home or self-care (01) | DRG 139 ==
LOC: ED 17:10 → ICU 21:49 → MEDTELE 04-09 21:23
PROVIDERS: ADMIT Internal Medicine; ATTEND Internal Medicine

== ENCOUNTER 2020-09-16 06:30 | Inpatient (IN) ==
[~2020-09-16 06:30] MED LIST: Buffered Lidocaine 1% SYRIN 1 ml INTRADERM ONE; Lactated Ringers 1000 ml BAG 1,000 ML IV SCH
[2020-09-16] MEDS ORDERED: Rocuronium 50 mg VIAL 10 mg/ml 5 ml VIAL (50 mg) ONE ×2 (06:53→08:33)
[2020-09-16] MEDS ORDERED: fentaNYL 250 mcg/5 ml 50 MCG/ML 5 ml VIAL (250 MCG) ONE (06:53)
[2020-09-16] MEDS ORDERED: Midazolam 2 mg/2 ml VIAL 1 mg/ml 2 ml VIAL (2 mg) ONE (06:53)
[2020-09-16] MEDS ORDERED: Lidocaine 2% PF 5 ML VIAL ONE (06:53)
[2020-09-16] MEDS ORDERED: Succinylcholine 200 mg VIAL 20 mg/ml 10 ml VIAL (200 mg) ONE (06:53)
[2020-09-16] MEDS ORDERED: Propofol 10 MG/ML 20 ML BTL ONE (06:53)
[2020-09-16] MEDS ORDERED: ceFAZolin 1 GM ADVAN 1 GM ADDV.VIAL IVPB ONE (06:58)
[2020-09-16] MEDS ORDERED: Heparin 5000 UNITS/ML 1 mL VIAL ONE (06:58)
[2020-09-16] MEDS ORDERED: ceFAZolin 2 GM PREMIX 2 GM/50 ML BAG ONE (06:58)
[2020-09-16] MEDS ORDERED: Bupivacaine 0.5% SDV PF 30ML VIAL ONE (07:06)
[2020-09-16] MEDS ORDERED: Ketamine HCL 50 mg/ml 10 ml VIAL (500 MG) ONE (08:17)
[2020-09-16] MEDS ORDERED: Phenylephrine 40 mcg/mL 10mL (400mcg) SYRINGE ONE (08:24)
[2020-09-16] MEDS ORDERED: Phenylephrine IV 10 MG/ML 1 ml VIAL ONE ×2 (08:39→11:16)
[2020-09-16] MEDS ORDERED: EPHEDrine (Pressors) 50 MG/ML VIAL ONE (08:41)
[2020-09-16] MEDS ORDERED: Remifentanil 2 MG VIAL ONE (10:01)
[2020-09-16] MEDS ORDERED: HYDROcodone/ACETAMIN 5/325 mg TAB PO PRN ×2 (10:37→18:17)
[2020-09-16] MEDS ORDERED: Ondansetron 4 mg VIAL 2 MG/ML 2 ml VIAL IV PRN (10:37)
[2020-09-16] MEDS ORDERED: Dextrose 50% Syringe 50 ml 25 GM/50 ML SYRINGE IV PUSH PRN (11:06)
[2020-09-16] MEDS ORDERED: Insulin GLARGINE 100 un/ml 10 ml VIAL SUBCUT ONE (11:17)
[2020-09-16] MEDS ORDERED: ceFAZolin VIAL VIAL ONE ×2 (13:01)
[2020-09-16] MEDS ORDERED: HYDROmorphone 1 MG/1 ML SYRINGE ONE (14:33)
[2020-09-16] MEDS ORDERED: Ondansetron 4 mg VIAL 2 MG/ML 2 ml VIAL ONE (15:20)
[2020-09-16] MEDS ORDERED: Lidocaine 2% JELLY 6 ML TOPICAL ONE (15:29)
[2020-09-16] MEDS ORDERED: Furosemide 20 mg/2 ml IV VIAL ONE (15:32)
[2020-09-16] MEDS ORDERED: fentaNYL 100 mcg/2 ml 50 MCG/ML VIAL IV PRN (15:52)
[2020-09-16] MEDS ORDERED: diPHENhydraMINE IV 50 MG/ML 1 ml VIAL (BENADRYL) IV PRN (15:52)
[2020-09-16] MEDS ORDERED: Naloxone 0.4 mg VIAL 0.4 mg/ml 1 ml VIAL IV PRN (15:52)
[2020-09-16] MEDS ORDERED: fentaNYL 100 mcg/2 ml 50 MCG/ML VIAL ONE (16:27)
[2020-09-16] MEDS: Heparin 5000 UNITS/ML 1 mL VIAL SUBCUT SCH (22:31)
[2020-09-16] MEDS: Lactated Ringers 1000 ml BAG 1,000 ML IV SCH (22:31)
[2020-09-16] MEDS: ceFAZolin 2 GM PREMIX 2 GM/50 ML BAG IVPB SCH (22:31)
[2020-09-17 04:51] LABS: BUN/Creatinine Ratio 14.3 (8-20); Calcium 8.4 mg/dL (8.6-10.3); EGFR African American 92.4 (>60); EGFR Non-African American 76.4 (>60); Potassium 3.8 mmol/L (3.5-5.0)
[2020-09-17] MEDS: ceFAZolin 2 GM PREMIX 2 GM/50 ML BAG IVPB SCH (05:12)
[2020-09-17] MEDS: Heparin 5000 UNITS/ML 1 mL VIAL SUBCUT SCH (05:14)
[2020-09-17 05:43] LABS: ABS Basophils 0.1 10^3/ul (0-0.2); ABS Eosinophils 0.2 10^3/ul (0-0.6); ABS Lymphocytes 1.9 10^3/ul (1.0-4.8); ABS Monocytes 1.3 10^3/ul (0-0.8); ABS Neutrophils 14.2 10^3/ul (1.5-7.7); Hematocrit 36 % (42-52); Hemoglobin 11.8 g/dL (14.0-18.0); Mean Corpuscular HGB Conc 33 g/dL (31-36); Mean Corpuscular Hemoglobin 29 pg (27-31); Mean Corpuscular Volume 88 fL (80-94); Mean Platelet Volume 7.5 fL (7.4-10.4); Platelet Count 443 10^3/uL (150-450); Red Blood Count 4.14 10^6 /uL (4.18-5.48); Red Cell Distribution Width 17 % (10-15); White Blood Count 17.6 10^3/uL (3.5-10.8)
[2020-09-17] MEDS: Lactated Ringers 1000 ml BAG 1,000 ML IV SCH (07:42)
[2020-09-17] MEDS ORDERED: Aspirin EC 81 mg TAB.EC (enteric coated) PO SCH (09:00)
[2020-09-17 11:27] VITALS: BP 135/65
== END 2020-09-17 12:20 | disposition home or self-care (01) | DRG 362 ==
LOC: OR 06:30 → SSU 10:38
PROVIDERS: ADMIT Student in an Organized Health Care Education/Training Program; ATTEND Student in an Organized Health Care Education/Training Program

== ENCOUNTER 2021-09-13 13:48 | Inpatient (IN) ==
[2021-09-13] MEDS ORDERED: Gadoteridol (CONTRAST) 279.3 MG/ML 10 ML IV ONE (19:45)
[2021-09-13 20:42] LABS: Urine Appearance Cloudy; Urine Bilirubin Negative (Negative); Urine Blood Negative (Negative); Urine Color Yellow; Urine Glucose Negative (Negative); Urine Ketones Negative (Negative); Urine Nitrite Negative (Negative); Urine Protein Negative (Negative); Urine Specific Gravity 1.013 (1.002-1.030); Urine Urobilinogen Positive (Negative)
[2021-09-13 21:06] LABS: ABS Basophils 0.1 10^3/ul (0-0.2); ABS Eosinophils 0.3 10^3/ul (0-0.6); ABS Lymphocytes 0.4 10^3/ul (1.0-4.8); ABS Monocytes 0.7 10^3/ul (0-0.8); ABS Neutrophils 7.2 10^3/ul (1.5-7.7); Eosinophil % 3.7 %; Hematocrit 30 % (42-52); Hemoglobin 10.4 g/dL (14.0-18.0); Mean Corpuscular HGB Conc 35 g/dL (31-36); Mean Corpuscular Hemoglobin 30 pg (27-31); Mean Corpuscular Volume 86 fL (80-94); Nucleated Red Blood Cells % 0.2; Platelet Count 382 10^3/uL (150-450); Red Cell Distribution Width 17 % (10-15); White Blood Count 8.7 10^3/uL (3.5-10.8)
[2021-09-13 21:17] LABS: INR 1.2 (0.86-1.15)
[2021-09-13 21:25] LABS: Albumin 3.3 g/dL (3.2-5.2); Albumin/Globulin Ratio 0.8 (1-3); Calcium 10.9 mg/dL (8.6-10.3); Globulin 4.4 g/dL (2-4); Potassium 3.6 mmol/L (3.5-5.0); Total Bilirubin 0.3 mg/dL (0.2-1.0); Total Protein 7.7 g/dL (6.4-8.9); eGFR CKD-EPI 97.5 (>60)
[2021-09-13] MEDS ORDERED: Morphine 2 MG/ML SYRINGE IV PRN (21:40)
[2021-09-13] MEDS ORDERED: fentaNYL PATCH 50 MCG/HR 1 PATCH TRANSDERM SCH (22:00)
[2021-09-13 22:32] LABS: Troponin I 0.01 ng/mL (<0.03)
[2021-09-13] MEDS ORDERED: Dextrose 50% Syringe 50 ml 25 GM/50 ML SYRINGE IV PUSH PRN (22:51)
[2021-09-14] MEDS: Heparin 5000 UNITS/ML 1 mL VIAL SUBCUT SCH ×4 (00:58→21:44)
[2021-09-14] MEDS ORDERED: hydrALAZINE 20 mg/ml 1 ML Vial IV IV SLOW PU ONE (03:35)
[2021-09-14 05:18] LABS: Hematocrit 32 % (42-52); Hemoglobin 10.9 g/dL (14.0-18.0); Mean Corpuscular HGB Conc 34 g/dL (31-36); Mean Corpuscular Hemoglobin 29 pg (27-31); Mean Corpuscular Volume 85 fL (80-94); Mean Platelet Volume 7.1 fL (7.4-10.4); Platelet Count 409 10^3/uL (150-450); Red Blood Count 3.77 10^6 /uL (4.18-5.48); Red Cell Distribution Width 17 % (10-15); White Blood Count 8.5 10^3/uL (3.5-10.8)
[2021-09-14 05:40] LABS: Calcium 11.3 mg/dL (8.6-10.3); Potassium 3.8 mmol/L (3.5-5.0); eGFR CKD-EPI 103.9 (>60)
[2021-09-14] MEDS: fentaNYL Patch Check Q Shift NOTE FOLLOW UP SCH ×2 (07:54→20:14)
[2021-09-14] MEDS: SPIRIVA Respimat (tiotropium) 2.5 mcg/inh Inhaler INH SCH (08:50)
[2021-09-14 09:01] LABS: Calcium (PTH Intact) 11.5 mg/dL (8.6-10.3)
[2021-09-14] MEDS ORDERED: Zoledronic Acid 4 MG in NS 0.9% 100 ml BAG 100 ML IVPB ONE (13:00)
[2021-09-15] MEDS: Heparin 5000 UNITS/ML 1 mL VIAL SUBCUT SCH ×3 (06:35→21:44)
[2021-09-15 06:58] LABS: Albumin 3.3 g/dL (3.2-5.2); Calcium 10.5 mg/dL (8.6-10.3); Magnesium 1.9 mg/dL (1.9-2.7); Potassium 3.7 mmol/L (3.5-5.0); eGFR CKD-EPI 98.7 (>60)
[2021-09-15] MEDS: fentaNYL Patch Check Q Shift NOTE FOLLOW UP SCH (07:23)
[2021-09-15] MEDS: SPIRIVA Respimat (tiotropium) 2.5 mcg/inh Inhaler INH SCH (08:01)
[2021-09-15] MEDS ORDERED: oxyCODONE SR 20 mg TAB PO SCH (11:00)
[2021-09-15] MEDS ORDERED: oxyCODONE SR 20 mg TAB PO ONE (11:13)
[2021-09-15] MEDS: oxyCODONE SR 40 mg TAB PO SCH (21:44)
[2021-09-16] MEDS ORDERED: Polyethylene Glycol 3350 17 GM PACKET PO PRN (03:57)
[2021-09-16] MEDS ORDERED: Senna TAB 8.6 mg TAB PO PRN (03:58)
[2021-09-16] MEDS: NS 0.9% 1000 ml BAG 1,000 ML IV SCH ×2 (04:29→14:56)
[2021-09-16] MEDS: Heparin 5000 UNITS/ML 1 mL VIAL SUBCUT SCH ×3 (04:45→20:46)
[2021-09-16 04:46] LABS: ABS Eosinophils 0.2 10^3/ul (0-0.6); ABS Lymphocytes 0.5 10^3/ul (1.0-4.8); ABS Monocytes 0.7 10^3/ul (0-0.8); ABS Neutrophils 7.4 10^3/ul (1.5-7.7); Eosinophil % 2.3 %; Hematocrit 30 % (42-52); Hemoglobin 9.9 g/dL (14.0-18.0); Lymphocyte % 5.3 %; Mean Corpuscular HGB Conc 33 g/dL (31-36); Mean Corpuscular Hemoglobin 28 pg (27-31); Mean Corpuscular Volume 87 fL (80-94); Nucleated Red Blood Cells % 0.2; Platelet Count 382 10^3/uL (150-450); Red Cell Distribution Width 17 % (10-15); White Blood Count 8.8 10^3/uL (3.5-10.8)
[2021-09-16 05:03] LABS: Calcium 8.9 mg/dL (8.6-10.3); Potassium 3.8 mmol/L (3.5-5.0); eGFR CKD-EPI 53.9 (>60)
[2021-09-16] MEDS: oxyCODONE SR 40 mg TAB PO SCH ×2 (07:50→20:46)
[2021-09-16] MEDS: SPIRIVA Respimat (tiotropium) 2.5 mcg/inh Inhaler INH SCH (08:15)
[2021-09-16] MEDS ORDERED: NS 0.9% 500 ml BAG 500 ML IV ONE (08:34)
[2021-09-16 10:42] LABS: Urine Appearance Cloudy; Urine Bilirubin Negative (Negative); Urine Blood Negative (Negative); Urine Color Yellow; Urine Glucose Negative (Negative); Urine Ketones Negative (Negative); Urine Nitrite Negative (Negative); Urine Protein Negative (Negative); Urine Specific Gravity 1.017 (1.002-1.030); Urine Urobilinogen Positive (Negative)
[2021-09-16 10:44] LABS: Urine Bacteria Absent (Absent); Urine Red Blood Cell Trace(0-2/hpf) (Absent); Urine Squamous Epithelial Cell Present (Absent); Urine White Blood Cell 1+(6-10/hpf) (Absent)
[2021-09-17] MEDS: NS 0.9% 1000 ml BAG 1,000 ML IV SCH (01:03)
[2021-09-17] MEDS: Heparin 5000 UNITS/ML 1 mL VIAL SUBCUT SCH ×3 (04:31→20:38)
[2021-09-17 04:49] LABS: ABS Eosinophils 0.2 10^3/ul (0-0.6); ABS Lymphocytes 0.4 10^3/ul (1.0-4.8); ABS Monocytes 0.8 10^3/ul (0-0.8); ABS Neutrophils 7.1 10^3/ul (1.5-7.7); Eosinophil % 2.3 %; Hematocrit 29 % (42-52); Hemoglobin 9.7 g/dL (14.0-18.0); Lymphocyte % 4.6 %; Mean Corpuscular HGB Conc 34 g/dL (31-36); Mean Corpuscular Hemoglobin 29 pg (27-31); Mean Corpuscular Volume 87 fL (80-94); Mean Platelet Volume 6.5 fL (7.4-10.4); Platelet Count 365 10^3/uL (150-450); Red Blood Count 3.35 10^6 /uL (4.18-5.48); Red Cell Distribution Width 17 % (10-15); White Blood Count 8.5 10^3/uL (3.5-10.8)
[2021-09-17 05:06] LABS: Potassium 3.9 mmol/L (3.5-5.0); eGFR CKD-EPI 69.3 (>60)
[2021-09-17] MEDS ORDERED: Magnesium Hydroxide LIQ 30 ML UDC PO ONE (07:34)
[2021-09-17] MEDS: SPIRIVA Respimat (tiotropium) 2.5 mcg/inh Inhaler INH SCH (07:44)
[2021-09-17] MEDS: oxyCODONE SR 40 mg TAB PO SCH ×2 (08:23→20:37)
[2021-09-17] MEDS: Senna TAB 8.6 mg TAB PO SCH (08:24)
[2021-09-18] MEDS ORDERED: Morphine ORAL.SOLN 10 mg 2 mg/ml UDC 5 ml (10 mg) PO ONE
[2021-09-18] MEDS: Heparin 5000 UNITS/ML 1 mL VIAL SUBCUT SCH ×3 (05:51→20:04)
[2021-09-18] MEDS: SPIRIVA Respimat (tiotropium) 2.5 mcg/inh Inhaler INH SCH (07:46)
[2021-09-18] MEDS: oxyCODONE SR 40 mg TAB PO SCH ×2 (08:14→20:03)
[2021-09-18] MEDS: Senna TAB 8.6 mg TAB PO SCH (08:15)
[2021-09-18] MEDS ORDERED: Alteplase (CATHFLO) 2 MG VIAL IV ONE (09:59)
[2021-09-18] MEDS ORDERED: Lactated Ringers 500 ml BAG 500 ML IV SCH (12:00)
[2021-09-18] MEDS ORDERED: Iodixanol (CONTRAST) 320 MG/ML 100 ML SDV IV ONE (15:11)
[2021-09-18 15:34] LABS: Calcium 8.6 mg/dL (8.6-10.3); Potassium 3.9 mmol/L (3.5-5.0)
[2021-09-19] MEDS: Heparin 5000 UNITS/ML 1 mL VIAL SUBCUT SCH ×3 (05:43→22:56)
[2021-09-19 06:00] LABS: Hematocrit 28 % (42-52); Hemoglobin 9.2 g/dL (14.0-18.0); Mean Corpuscular HGB Conc 33 g/dL (31-36); Mean Corpuscular Hemoglobin 29 pg (27-31); Mean Corpuscular Volume 87 fL (80-94); Mean Platelet Volume 6.7 fL (7.4-10.4); Platelet Count 389 10^3/uL (150-450); Red Blood Count 3.21 10^6 /uL (4.18-5.48); Red Cell Distribution Width 16 % (10-15); White Blood Count 8.7 10^3/uL (3.5-10.8)
[2021-09-19 06:15] LABS: Calcium 8.8 mg/dL (8.6-10.3); eGFR CKD-EPI 71.9 (>60)
[2021-09-19 06:33] LABS: ABS Eosinophils 0.3 10^3/ul (0-0.6); ABS Lymphocytes 0.3 10^3/ul (1.0-4.8); ABS Monocytes 0.9 10^3/ul (0-0.8); ABS Neutrophils 7.3 10^3/ul (1.5-7.7); Eosinophil % 3.1 %; Lymphocyte % 3.5 %
[2021-09-19] MEDS: SPIRIVA Respimat (tiotropium) 2.5 mcg/inh Inhaler INH SCH (07:23)
[2021-09-19] MEDS: Senna TAB 8.6 mg TAB PO SCH (08:12)
[2021-09-19] MEDS: oxyCODONE SR 40 mg TAB PO SCH (08:12)
[2021-09-19] MEDS: oxyCODONE SR 20 mg TAB PO SCH (20:19)
[2021-09-19] MEDS: Morphine ORAL.SOLN 10 mg 2 mg/ml UDC 5 ml (10 mg) PO PRN (22:54)
[2021-09-20] MEDS: Morphine ORAL.SOLN 10 mg 2 mg/ml UDC 5 ml (10 mg) PO PRN ×5 (04:42→18:37)
[2021-09-20] MEDS: Heparin 5000 UNITS/ML 1 mL VIAL SUBCUT SCH ×3 (05:43→21:21)
[2021-09-20 06:49] LABS: Albumin 3.3 g/dL (3.2-5.2); Albumin/Globulin Ratio 0.7 (1-3); Calcium 9.3 mg/dL (8.6-10.3); Globulin 4.9 g/dL (2-4); Phosphorus 3.3 mg/dL (2.5-5.0); Potassium 4.1 mmol/L (3.5-5.0); Total Bilirubin 0.6 mg/dL (0.2-1.0); Total Protein 8.2 g/dL (6.4-8.9)
[2021-09-20 06:55] LABS: ABS Eosinophils 0.3 10^3/ul (0-0.6); ABS Lymphocytes 0.4 10^3/ul (1.0-4.8); ABS Monocytes 1.2 10^3/ul (0-0.8); ABS Neutrophils 7.8 10^3/ul (1.5-7.7); Eosinophil % 2.6 %; Hematocrit 28 % (42-52); Hemoglobin 9.6 g/dL (14.0-18.0); Lymphocyte % 4.5 %; Mean Corpuscular HGB Conc 34 g/dL (31-36); Mean Corpuscular Hemoglobin 29 pg (27-31); Mean Corpuscular Volume 87 fL (80-94); Mean Platelet Volume 7.2 fL (7.4-10.4); Nucleated Red Blood Cells % 0.1; Platelet Count 432 10^3/uL (150-450); Red Blood Count 3.25 10^6 /uL (4.18-5.48); Red Cell Distribution Width 17 % (10-15); White Blood Count 9.7 10^3/uL (3.5-10.8)
[2021-09-20] MEDS: SPIRIVA Respimat (tiotropium) 2.5 mcg/inh Inhaler INH SCH (07:22)
[2021-09-20] MEDS: Senna TAB 8.6 mg TAB PO SCH (07:51)
[2021-09-20] MEDS: oxyCODONE SR 20 mg TAB PO SCH ×2 (07:59→23:05)
[2021-09-21] MEDS: Heparin 5000 UNITS/ML 1 mL VIAL SUBCUT SCH ×3 (06:14→23:08)
[2021-09-21] MEDS: Morphine ORAL.SOLN 10 mg 2 mg/ml UDC 5 ml (10 mg) PO PRN ×3 (06:17→15:23)
[2021-09-21] MEDS: SPIRIVA Respimat (tiotropium) 2.5 mcg/inh Inhaler INH SCH (07:27)
[2021-09-21] MEDS: oxyCODONE SR 20 mg TAB PO SCH ×2 (09:20→23:07)
[2021-09-21] MEDS: Senna TAB 8.6 mg TAB PO SCH (09:21)
[2021-09-21] MEDS ORDERED: Alteplase (CATHFLO) 2 MG VIAL IV ONE (09:52)
[2021-09-21 10:30] LABS: ABS Eosinophils 0.4 10^3/ul (0-0.6); ABS Lymphocytes 0.4 10^3/ul (1.0-4.8); ABS Monocytes 0.6 10^3/ul (0-0.8); ABS Neutrophils 7.1 10^3/ul (1.5-7.7); Eosinophil % 4.2 %; Hematocrit 29 % (42-52); Hemoglobin 9.5 g/dL (14.0-18.0); Lymphocyte % 4.7 %; Mean Corpuscular HGB Conc 33 g/dL (31-36); Mean Corpuscular Hemoglobin 29 pg (27-31); Mean Corpuscular Volume 87 fL (80-94); Nucleated Red Blood Cells % 0.1; Platelet Count 467 10^3/uL (150-450); Red Blood Count 3.33 10^6 /uL (4.18-5.48); Red Cell Distribution Width 17 % (10-15); White Blood Count 8.5 10^3/uL (3.5-10.8)
[2021-09-21 10:38] LABS: Albumin 3.3 g/dL (3.2-5.2); Albumin/Globulin Ratio 0.6 (1-3); Calcium 9.4 mg/dL (8.6-10.3); Globulin 5.1 g/dL (2-4); Potassium 4.1 mmol/L (3.5-5.0); Total Bilirubin 0.4 mg/dL (0.2-1.0); Total Protein 8.4 g/dL (6.4-8.9); eGFR CKD-EPI 30.7 (>60)
[2021-09-21] MEDS ORDERED: Lactated Ringers 1000 ml BAG 1,000 ML IV ONE (11:09)
[2021-09-21] MEDS ORDERED: Lactated Ringers 1000 ml BAG 1,000 ML IV SCH (21:00)
[2021-09-22 00:41] LABS: Urine Appearance Turbid; Urine Bilirubin Negative (Negative); Urine Blood Negative (Negative); Urine Chloride Concentration < 22 mmol/L; Urine Color Yellow; Urine Glucose Negative (Negative); Urine Ketones Negative (Negative); Urine Nitrite Negative (Negative); Urine Potassium Concentration 45.2 mmol/L; Urine Protein 1+(30 mg/dL) (Negative); Urine Sodium Concentration 38 mmol/L; Urine Specific Gravity 1.016 (1.002-1.030); Urine Urobilinogen Negative (Negative)
[2021-09-22 00:49] LABS: Urine Bacteria 1+ (Absent); Urine Red Blood Cell 2+(6-10/hpf) (Absent); Urine Squamous Epithelial Cell Present (Absent); Urine White Blood Cell 3+(>20/hpf) (Absent)
[2021-09-22] MEDS: Morphine ORAL.SOLN 10 mg 2 mg/ml UDC 5 ml (10 mg) PO PRN ×4 (03:46→17:36)
[2021-09-22 04:20] LABS: Rapid COVID-19 Molecular Undetected (Undetected)
[2021-09-22] MEDS: Heparin 5000 UNITS/ML 1 mL VIAL SUBCUT SCH ×2 (05:35→12:12)
[2021-09-22 05:54] LABS: ABS Eosinophils 0.4 10^3/ul (0-0.6); ABS Lymphocytes 0.4 10^3/ul (1.0-4.8); ABS Monocytes 0.6 10^3/ul (0-0.8); ABS Neutrophils 5.8 10^3/ul (1.5-7.7); Eosinophil % 5.5 %; Hematocrit 26 % (42-52); Hemoglobin 8.5 g/dL (14.0-18.0); Lymphocyte % 5.4 %; Mean Corpuscular HGB Conc 33 g/dL (31-36); Mean Corpuscular Hemoglobin 29 pg (27-31); Mean Corpuscular Volume 87 fL (80-94); Mean Platelet Volume 6.3 fL (7.4-10.4); Nucleated Red Blood Cells % 0.1; Platelet Count 429 10^3/uL (150-450); Red Blood Count 2.97 10^6 /uL (4.18-5.48); Red Cell Distribution Width 17 % (10-15); White Blood Count 7.2 10^3/uL (3.5-10.8)
[2021-09-22 06:11] LABS: Calcium 8.7 mg/dL (8.6-10.3); eGFR CKD-EPI 36.5 (>60)
[2021-09-22 07:59] LABS: Urine Creatinine Concentration 155.56 mg/dL
[2021-09-22] MEDS: SPIRIVA Respimat (tiotropium) 2.5 mcg/inh Inhaler INH SCH (08:05)
[2021-09-22] MEDS: oxyCODONE SR 20 mg TAB PO SCH (08:46)
[2021-09-22] MEDS: Senna TAB 8.6 mg TAB PO SCH (08:46)
[2021-09-22] MEDS ORDERED: oxyCODONE SR 20 mg TAB PO SCH (12:00)
[2021-09-22] MEDS ORDERED: Magnesium Hydroxide LIQ 30 ML UDC PO PRN (14:18)
[2021-09-22] MEDS ORDERED: COVID-19 VACCINE, TRIS(PFIZER)/PF 30 MCG/0.3 ML IM ONE (15:00)
[2021-09-22 16:38] VITALS: BP 102/58
== END 2021-09-22 18:24 | disposition short-term general hospital (02) | DRG 343 ==
LOC: ED 13:48 → EDHOLD 22:05 → SUATTDRO 22:05 → MEDTELE 23:00
PROVIDERS: ADMIT Student in an Organized Health Care Education/Training Program; ATTEND Hospitalist

== ENCOUNTER 2022-01-04 17:40 | Inpatient (IN) ==
[2022-01-04] MEDS ORDERED: NS 0.9% 1000 ml BAG 1,000 ML IV ONE (18:18)
[2022-01-04] MEDS ORDERED: Iohexol 350 (CONTRAST) 500 ML MDV IV ONE (18:31)
[2022-01-04 19:42] LABS: ABS Lymphocytes 0.3 10^3/ul (1.0-4.8); ABS Monocytes 0.5 10^3/ul (0-0.8); ABS Neutrophils 5.1 10^3/ul (1.5-7.7); Eosinophil % 0.7 %; Hematocrit 28 % (42-52); Hemoglobin 8.9 g/dL (14.0-18.0); Lymphocyte % 5.7 %; Mean Corpuscular HGB Conc 32 g/dL (31-36); Mean Corpuscular Hemoglobin 27 pg (27-31); Mean Corpuscular Volume 86 fL (80-94); Mean Platelet Volume 6.7 fL (7.4-10.4); Nucleated Red Blood Cells % 0.5; Platelet Count 522 10^3/uL (150-450); Red Blood Count 3.27 10^6 /uL (4.18-5.48); Red Cell Distribution Width 21 % (10-15)
[2022-01-04 19:43] LABS: Activated Partial Thrombo Time 30.3 seconds (26.0-38.0); INR 1.22 (0.86-1.15)
[2022-01-04 20:04] LABS: Albumin 3.5 g/dL (3.2-5.2); Albumin/Globulin Ratio 0.8 (1-3); Calcium 9.5 mg/dL (8.6-10.3); Globulin 4.4 g/dL (2-4); HDL Cholesterol 23.5 mg/dL; Potassium 3.9 mmol/L (3.5-5.0); Total Bilirubin 0.3 mg/dL (0.2-1.0); Total Protein 7.9 g/dL (6.4-8.9); eGFR CKD-EPI 111.6 (>60)
[2022-01-04] MEDS ORDERED: HYDROmorphone 1 MG/1 ML SYRINGE IM ONE (20:07)
[2022-01-04 20:42] LABS: High Sensitivity Troponin 1 Hr 15 pg/mL (<20)
[2022-01-04 23:30] LABS: Urine Appearance Cloudy; Urine Bilirubin Negative (Negative); Urine Blood Negative (Negative); Urine Color Yellow; Urine Glucose Negative (Negative); Urine Ketones Negative (Negative); Urine Nitrite Negative (Negative); Urine Protein Negative (Negative); Urine Specific Gravity 1.021 (1.002-1.030); Urine Urobilinogen Positive (Negative)
[2022-01-05] MEDS: ABEMACICLIB 150 MG PO SCH ×2 (00:49→14:48)
[2022-01-05] MEDS ORDERED: Enoxaparin 40 MG/0.4 ML SYR SUBCUT SCH (01:00)
[2022-01-05] MEDS: Morphine ER 30 mg TAB ** extended release PO SCH ×4 (06:01→22:15)
[2022-01-05] MEDS: Enoxaparin 40 MG/0.4 ML SYR SUBCUT SCH (06:02)
[2022-01-05] MEDS ORDERED: Umeclidinium 62.5 MDI(NF) MDI INH SCH (09:00)
[2022-01-05] MEDS: Senna TAB 8.6 mg TAB PO SCH (09:30)
[2022-01-05] MEDS: oxyCODONE SR 20 mg TAB PO SCH ×2 (09:30→20:51)
[2022-01-05] MEDS ORDERED: Dexamethasone IV 10 MG in NS 0.9% 50 ML 50 ML IVPB ONE (09:44)
[2022-01-05] MEDS ORDERED: Letrozole 2.5 MG TAB (NF) PO ONE (10:00)
[2022-01-05] MEDS ORDERED: Dexamethasone IV 10 MG in NS 0.9% 50 ML IVPB ONE (10:30)
[2022-01-05] MEDS ORDERED: Gadoteridol (CONTRAST) 279.3 MG/ML 10 ML IV ONE (14:03)
[2022-01-05] MEDS ORDERED: Dexamethasone IV 4 MG/ML 5 ML VIAL (20 MG) ONE (14:18)
[2022-01-05] MEDS: SPIRIVA Respimat (tiotropium) 2.5 mcg/inh Inhaler INH SCH (14:22)
[2022-01-05] MEDS: Dexamethasone IV 4 MG/ML VIAL 1 ml VIAL IV SLOW PU SCH (20:53)
[2022-01-05] MEDS: Famotidine IV 10 MG/ML 2 ml VIAL (20 mg) IV SLOW PU SCH (20:53)
[2022-01-06] MEDS: Morphine ER 30 mg TAB ** extended release PO SCH ×2 (03:36→11:49)
[2022-01-06 06:17] LABS: ABS Lymphocytes 0.3 10^3/ul (1.0-4.8); ABS Monocytes 0.2 10^3/ul (0-0.8); ABS Neutrophils 6.2 10^3/ul (1.5-7.7); Eosinophil % 0.1 %; Hematocrit 27 % (42-52); Hemoglobin 8.6 g/dL (14.0-18.0); Lymphocyte % 4.8 %; Mean Corpuscular HGB Conc 32 g/dL (31-36); Mean Corpuscular Hemoglobin 27 pg (27-31); Mean Corpuscular Volume 85 fL (80-94); Mean Platelet Volume 6.9 fL (7.4-10.4); Nucleated Red Blood Cells % 0.2; Platelet Count 462 10^3/uL (150-450); Red Blood Count 3.17 10^6 /uL (4.18-5.48); Red Cell Distribution Width 21 % (10-15); White Blood Count 6.7 10^3/uL (3.5-10.8)
[2022-01-06 06:32] LABS: Albumin 3.2 g/dL (3.2-5.2); Albumin/Globulin Ratio 0.7 (1-3); Calcium 9.5 mg/dL (8.6-10.3); Globulin 4.5 g/dL (2-4); Potassium 4.3 mmol/L (3.5-5.0); Total Bilirubin 0.3 mg/dL (0.2-1.0); Total Protein 7.7 g/dL (6.4-8.9); eGFR CKD-EPI 113.4 (>60)
[2022-01-06] MEDS: Dexamethasone IV 4 MG/ML VIAL 1 ml VIAL IV SLOW PU SCH ×4 (06:47→21:11)
[2022-01-06] MEDS: SPIRIVA Respimat (tiotropium) 2.5 mcg/inh Inhaler INH SCH (07:06)
[2022-01-06] MEDS: oxyCODONE SR 20 mg TAB PO SCH ×2 (08:38→21:10)
[2022-01-06] MEDS: Famotidine IV 10 MG/ML 2 ml VIAL (20 mg) IV SLOW PU SCH ×3 (08:39→21:11)
[2022-01-06] MEDS: Senna TAB 8.6 mg TAB PO SCH (08:39)
[2022-01-06] MEDS: Enoxaparin 40 MG/0.4 ML SYR SUBCUT SCH (08:40)
[2022-01-06] MEDS ORDERED: Letrozole 2.5 MG TAB (NF) PO SCH (09:00)
[2022-01-06] MEDS ORDERED: Alteplase (CATHFLO) 2 MG VIAL IV ONE (12:07)
[2022-01-06] MEDS: Polyethylene Glycol 3350 17 GM PACKET PO PRN (21:11)
[2022-01-06] MEDS: Al Hydrox/Mg Hydrox/Simet LIQ 30 ML UDC PO PRN (21:11)
[2022-01-07] MEDS: Dexamethasone IV 4 MG/ML VIAL 1 ml VIAL IV SLOW PU SCH ×4 (02:26→20:48)
[2022-01-07] MEDS: oxyCODONE SR 20 mg TAB PO SCH ×2 (09:19→20:47)
[2022-01-07] MEDS: SPIRIVA Respimat (tiotropium) 2.5 mcg/inh Inhaler INH SCH (09:40)
[2022-01-07] MEDS: Enoxaparin 40 MG/0.4 ML SYR SUBCUT SCH (10:33)
[2022-01-07] MEDS: Senna TAB 8.6 mg TAB PO SCH (10:36)
[2022-01-07] MEDS: Famotidine IV 10 MG/ML 2 ml VIAL (20 mg) IV SLOW PU SCH ×2 (10:37→20:48)
[2022-01-07] MEDS: Polyethylene Glycol 3350 17 GM PACKET PO PRN (20:47)
[2022-01-07] MEDS: Al Hydrox/Mg Hydrox/Simet LIQ 30 ML UDC PO PRN (20:47)
[2022-01-08] MEDS: Dexamethasone IV 4 MG/ML VIAL 1 ml VIAL IV SLOW PU SCH ×5 (02:19→23:46)
[2022-01-08] MEDS: SPIRIVA Respimat (tiotropium) 2.5 mcg/inh Inhaler INH SCH (07:43)
[2022-01-08] MEDS: oxyCODONE SR 20 mg TAB PO SCH ×2 (08:52→21:28)
[2022-01-08] MEDS: Famotidine IV 10 MG/ML 2 ml VIAL (20 mg) IV SLOW PU SCH ×2 (08:53→21:29)
[2022-01-08] MEDS: Senna TAB 8.6 mg TAB PO SCH (08:53)
[2022-01-08] MEDS: Enoxaparin 40 MG/0.4 ML SYR SUBCUT SCH (08:56)
[2022-01-08] MEDS ORDERED: Polyethylene Glycol 3350 17 GM PACKET PO PRN (11:30)
[2022-01-09] MEDS: Dexamethasone IV 4 MG/ML VIAL 1 ml VIAL IV SLOW PU SCH ×4 (05:45→23:39)
[2022-01-09 07:02] LABS: Calcium 8.7 mg/dL (8.6-10.3); Potassium 4.6 mmol/L (3.5-5.0); eGFR CKD-EPI 118.1 (>60)
[2022-01-09] MEDS: SPIRIVA Respimat (tiotropium) 2.5 mcg/inh Inhaler INH SCH (07:27)
[2022-01-09] MEDS: Enoxaparin 40 MG/0.4 ML SYR SUBCUT SCH (08:56)
[2022-01-09] MEDS: Famotidine IV 10 MG/ML 2 ml VIAL (20 mg) IV SLOW PU SCH ×2 (08:56→21:39)
[2022-01-09] MEDS: oxyCODONE SR 20 mg TAB PO SCH ×2 (08:57→21:35)
[2022-01-09] MEDS: Senna TAB 8.6 mg TAB PO SCH (08:57)
[2022-01-09] MEDS: Magnesium Hydroxide LIQ 30 ML UDC PO PRN (21:44)
[2022-01-10] MEDS: Dexamethasone IV 4 MG/ML VIAL 1 ml VIAL IV SLOW PU SCH ×3 (05:52→17:02)
[2022-01-10] MEDS: SPIRIVA Respimat (tiotropium) 2.5 mcg/inh Inhaler INH SCH (08:39)
[2022-01-10] MEDS: Senna TAB 8.6 mg TAB PO SCH (09:13)
[2022-01-10] MEDS: Famotidine IV 10 MG/ML 2 ml VIAL (20 mg) IV SLOW PU SCH ×2 (09:16→21:25)
[2022-01-10] MEDS: Enoxaparin 40 MG/0.4 ML SYR SUBCUT SCH (09:16)
[2022-01-10] MEDS: oxyCODONE SR 20 mg TAB PO SCH ×2 (09:26→21:23)
[2022-01-11] MEDS: Dexamethasone IV 4 MG/ML VIAL 1 ml VIAL IV SLOW PU SCH ×4 (00:56→18:02)
[2022-01-11] MEDS: SPIRIVA Respimat (tiotropium) 2.5 mcg/inh Inhaler INH SCH (07:47)
[2022-01-11] MEDS: oxyCODONE SR 20 mg TAB PO SCH ×2 (09:20→19:52)
[2022-01-11] MEDS: Famotidine IV 10 MG/ML 2 ml VIAL (20 mg) IV SLOW PU SCH ×2 (09:21→19:52)
[2022-01-11] MEDS: Enoxaparin 40 MG/0.4 ML SYR SUBCUT SCH (09:21)
[2022-01-11] MEDS: Senna TAB 8.6 mg TAB PO SCH (09:21)
[2022-01-12] MEDS: Dexamethasone IV 4 MG/ML VIAL 1 ml VIAL IV SLOW PU SCH ×3 (02:35→22:25)
[2022-01-12] MEDS: SPIRIVA Respimat (tiotropium) 2.5 mcg/inh Inhaler INH SCH (07:57)
[2022-01-12] MEDS: Senna TAB 8.6 mg TAB PO SCH (08:24)
[2022-01-12] MEDS: Famotidine IV 10 MG/ML 2 ml VIAL (20 mg) IV SLOW PU SCH ×2 (08:24→22:25)
[2022-01-12] MEDS: Enoxaparin 40 MG/0.4 ML SYR SUBCUT SCH (08:25)
[2022-01-12] MEDS: oxyCODONE SR 20 mg TAB PO SCH ×2 (09:02→22:23)
[2022-01-12] MEDS ORDERED: COVID-19 VACCINE, TRIS(PFIZER)/PF 30 MCG/0.3 ML IM ONE (14:00)
[2022-01-12] MEDS ORDERED: Gadoteridol (CONTRAST) 279.3 MG/ML 10 ML IV ONE (15:34)
[2022-01-13] MEDS: oxyCODONE SR 20 mg TAB PO SCH ×2 (08:49→21:09)
[2022-01-13] MEDS: Senna TAB 8.6 mg TAB PO SCH (08:50)
[2022-01-13] MEDS: Dexamethasone IV 4 MG/ML VIAL 1 ml VIAL IV SLOW PU SCH ×2 (08:51→21:11)
[2022-01-13] MEDS: Enoxaparin 40 MG/0.4 ML SYR SUBCUT SCH (08:51)
[2022-01-13] MEDS: Famotidine IV 10 MG/ML 2 ml VIAL (20 mg) IV SLOW PU SCH ×2 (08:51→21:11)
[2022-01-14] MEDS: Famotidine IV 10 MG/ML 2 ml VIAL (20 mg) IV SLOW PU SCH ×2 (09:09→20:47)
[2022-01-14] MEDS: Dexamethasone IV 4 MG/ML VIAL 1 ml VIAL IV SLOW PU SCH ×2 (09:09→20:47)
[2022-01-14] MEDS: Enoxaparin 40 MG/0.4 ML SYR SUBCUT SCH (09:12)
[2022-01-14] MEDS: oxyCODONE SR 20 mg TAB PO SCH ×2 (09:13→22:03)
[2022-01-14] MEDS: Senna TAB 8.6 mg TAB PO SCH (09:14)
[2022-01-14 14:41] LABS: Hematocrit 30 % (42-52); Hemoglobin 9.3 g/dL (14.0-18.0); Mean Corpuscular HGB Conc 31 g/dL (31-36); Mean Corpuscular Hemoglobin 27 pg (27-31); Mean Corpuscular Volume 85 fL (80-94); Mean Platelet Volume 6.9 fL (7.4-10.4); Platelet Count 372 10^3/uL (150-450); Red Cell Distribution Width 22 % (10-15); White Blood Count 10.4 10^3/uL (3.5-10.8)
[2022-01-14 14:53] LABS: Calcium 8.3 mg/dL (8.6-10.3); Magnesium 2.1 mg/dL (1.9-2.7); Potassium 4.3 mmol/L (3.5-5.0)
[2022-01-14 14:59] LABS: eGFR CKD-EPI 119.8 (>60)
[2022-01-14] MEDS: Magnesium Hydroxide LIQ 30 ML UDC PO PRN (17:03)
[2022-01-15 06:23] LABS: Hematocrit 27 % (42-52); Hemoglobin 8.8 g/dL (14.0-18.0); Mean Corpuscular HGB Conc 33 g/dL (31-36); Mean Corpuscular Hemoglobin 28 pg (27-31); Mean Corpuscular Volume 85 fL (80-94); Mean Platelet Volume 6.9 fL (7.4-10.4); Platelet Count 355 10^3/uL (150-450); Red Cell Distribution Width 22 % (10-15); White Blood Count 8.9 10^3/uL (3.5-10.8)
[2022-01-15 06:52] LABS: ABS Lymphocytes 0.2 10^3/ul (1.0-4.8); ABS Monocytes 0.8 10^3/ul (0-0.8); Lymphocyte % 1.8 %; Nucleated Red Blood Cells % 0.2
[2022-01-15 07:08] LABS: Calcium 8.3 mg/dL (8.6-10.3); Potassium 4.7 mmol/L (3.5-5.0); eGFR CKD-EPI 122.3 (>60)
[2022-01-15] MEDS: oxyCODONE SR 20 mg TAB PO SCH ×2 (08:44→20:28)
[2022-01-15] MEDS: Senna TAB 8.6 mg TAB PO SCH (08:45)
[2022-01-15] MEDS: Famotidine IV 10 MG/ML 2 ml VIAL (20 mg) IV SLOW PU SCH ×2 (08:46→20:28)
[2022-01-15] MEDS: Enoxaparin 40 MG/0.4 ML SYR SUBCUT SCH (08:46)
[2022-01-15] MEDS: Dexamethasone IV 4 MG/ML VIAL 1 ml VIAL IV SLOW PU SCH ×2 (08:46→20:29)
[2022-01-15] MEDS: Al Hydrox/Mg Hydrox/Simet LIQ 30 ML UDC PO PRN (23:13)
[2022-01-16] MEDS: oxyCODONE SR 20 mg TAB PO SCH ×2 (08:37→21:27)
[2022-01-16] MEDS: Dexamethasone IV 4 MG/ML VIAL 1 ml VIAL IV SLOW PU SCH ×2 (08:37→21:27)
[2022-01-16] MEDS: Famotidine IV 10 MG/ML 2 ml VIAL (20 mg) IV SLOW PU SCH ×2 (08:38→21:27)
[2022-01-16] MEDS: Senna TAB 8.6 mg TAB PO SCH (08:38)
[2022-01-16] MEDS: Enoxaparin 40 MG/0.4 ML SYR SUBCUT SCH (08:39)
[2022-01-16] MEDS: Al Hydrox/Mg Hydrox/Simet LIQ 30 ML UDC PO PRN ×2 (12:31→21:26)
[2022-01-17] MEDS: Al Hydrox/Mg Hydrox/Simet LIQ 30 ML UDC PO PRN (08:41)
[2022-01-17] MEDS: Enoxaparin 40 MG/0.4 ML SYR SUBCUT SCH (08:41)
[2022-01-17] MEDS: Famotidine IV 10 MG/ML 2 ml VIAL (20 mg) IV SLOW PU SCH (08:41)
[2022-01-17] MEDS: Dexamethasone IV 4 MG/ML VIAL 1 ml VIAL IV SLOW PU SCH (08:41)
[2022-01-17] MEDS: oxyCODONE SR 20 mg TAB PO SCH (08:42)
[2022-01-17] MEDS: Senna TAB 8.6 mg TAB PO SCH (08:43)
[2022-01-17 11:37] VITALS: BP 147/76
== END 2022-01-17 14:00 | disposition home health service (06) | DRG 40 ==
LOC: ED 17:40 → SUATTDRO 01-05 00:06 → EDHOLD 01-05 00:06 → MEDTELE 01-05 14:12
PROVIDERS: ADMIT Hospitalist; ATTEND Internal Medicine Hematology & Oncology

== ENCOUNTER 2022-01-26 06:59 | Inpatient (IN) ==
[2022-01-26] MEDS ORDERED: Senna TAB 8.6 mg TAB PO PRN (12:52)
[2022-01-26] MEDS ORDERED: Magnesium Hydroxide LIQ 30 ML UDC PO PRN (12:52)
[2022-01-26] MEDS: Enoxaparin 40 MG/0.4 ML SYR SUBCUT SCH (15:13)
[2022-01-26] MEDS: Calcium Carb (TUMS) 500 mg CHEW TAB PO PRN (19:42)
[2022-01-26] MEDS: Senna TAB 8.6 mg TAB PO SCH (20:48)
[2022-01-26] MEDS: oxyCODONE SR 20 mg TAB PO SCH (20:50)
[2022-01-27] MEDS: Calcium Carb (TUMS) 500 mg CHEW TAB PO PRN ×3 (05:43→21:28)
[2022-01-27 06:14] LABS: ABS Basophils 0.1 10^3/ul (0-0.2); ABS Lymphocytes 0.1 10^3/ul (1.0-4.8); ABS Monocytes 0.5 10^3/ul (0-0.8); ABS Neutrophils 8.2 10^3/ul (1.5-7.7); ABS Nucleated RBC 0.1 10^3/ul; Hematocrit 29 % (42-52); Hemoglobin 9.2 g/dL (14.0-18.0); Lymphocyte % 1.4 %; Mean Corpuscular HGB Conc 31 g/dL (31-36); Mean Corpuscular Hemoglobin 27 pg (27-31); Mean Corpuscular Volume 85 fL (80-94); Mean Platelet Volume 6.8 fL (7.4-10.4); Nucleated Red Blood Cells % 0.7; Platelet Count 265 10^3/uL (150-450); Red Blood Count 3.44 10^6 /uL (4.18-5.48); Red Cell Distribution Width 22 % (10-15)
[2022-01-27 06:46] LABS: Albumin 2.8 g/dL (3.2-5.2); Calcium 8.3 mg/dL (8.6-10.3); Globulin 2.8 g/dL (2-4); Potassium 4.5 mmol/L (3.5-5.0); Total Bilirubin 0.3 mg/dL (0.2-1.0); Total Protein 5.6 g/dL (6.4-8.9); eGFR CKD-EPI 132.5 (>60)
[2022-01-27] MEDS: oxyCODONE SR 20 mg TAB PO SCH ×2 (09:10→21:21)
[2022-01-27] MEDS: Polyethylene Glycol 3350 17 GM PACKET PO SCH (09:10)
[2022-01-27] MEDS: Enoxaparin 40 MG/0.4 ML SYR SUBCUT SCH (14:37)
[2022-01-27] MEDS: Senna TAB 8.6 mg TAB PO SCH (21:21)
[2022-01-28] MEDS: Al Hydrox/Mg Hydrox/Simet LIQ 30 ML UDC PO PRN ×3 (00:02→11:40)
[2022-01-28] MEDS: Calcium Carb (TUMS) 500 mg CHEW TAB PO PRN ×3 (05:42→22:17)
[2022-01-28] MEDS: oxyCODONE SR 20 mg TAB PO SCH ×2 (09:02→21:14)
[2022-01-28] MEDS: Polyethylene Glycol 3350 17 GM PACKET PO SCH (09:05)
[2022-01-28] MEDS: Enoxaparin 40 MG/0.4 ML SYR SUBCUT SCH (14:09)
[2022-01-28] MEDS: Senna TAB 8.6 mg TAB PO SCH (21:16)
[2022-01-29] MEDS: oxyCODONE SR 20 mg TAB PO SCH ×2 (07:58→21:02)
[2022-01-29] MEDS: Polyethylene Glycol 3350 17 GM PACKET PO SCH (08:02)
[2022-01-29] MEDS: Enoxaparin 40 MG/0.4 ML SYR SUBCUT SCH (14:14)
[2022-01-29] MEDS: Al Hydrox/Mg Hydrox/Simet LIQ 30 ML UDC PO PRN (14:16)
[2022-01-29] MEDS: Calcium Carb (TUMS) 500 mg CHEW TAB PO PRN (19:27)
[2022-01-29] MEDS: Senna TAB 8.6 mg TAB PO SCH (21:03)
[2022-01-30] MEDS: Calcium Carb (TUMS) 500 mg CHEW TAB PO PRN ×4 (00:09→19:19)
[2022-01-30] MEDS: oxyCODONE SR 20 mg TAB PO SCH ×2 (08:37→21:36)
[2022-01-30] MEDS: Polyethylene Glycol 3350 17 GM PACKET PO SCH (08:39)
[2022-01-30] MEDS: Enoxaparin 40 MG/0.4 ML SYR SUBCUT SCH (14:38)
[2022-01-30] MEDS: Al Hydrox/Mg Hydrox/Simet LIQ 30 ML UDC PO PRN ×2 (14:43→22:20)
[2022-01-30] MEDS: Senna TAB 8.6 mg TAB PO SCH (21:36)
[2022-01-31] MEDS: Calcium Carb (TUMS) 500 mg CHEW TAB PO PRN ×3 (05:50→20:40)
[2022-01-31] MEDS: Al Hydrox/Mg Hydrox/Simet LIQ 30 ML UDC PO PRN ×3 (05:50→20:40)
[2022-01-31] MEDS: oxyCODONE SR 20 mg TAB PO SCH ×2 (08:12→20:31)
[2022-01-31] MEDS: Polyethylene Glycol 3350 17 GM PACKET PO SCH (08:19)
[2022-01-31] MEDS: Enoxaparin 40 MG/0.4 ML SYR SUBCUT SCH (14:55)
[2022-01-31] MEDS: Senna TAB 8.6 mg TAB PO SCH (20:31)
[2022-02-01] MEDS: Al Hydrox/Mg Hydrox/Simet LIQ 30 ML UDC PO PRN ×2 (06:32→20:19)
[2022-02-01] MEDS: Calcium Carb (TUMS) 500 mg CHEW TAB PO PRN ×3 (06:35→20:19)
[2022-02-01] MEDS: oxyCODONE SR 20 mg TAB PO SCH ×2 (08:12→20:18)
[2022-02-01] MEDS: Polyethylene Glycol 3350 17 GM PACKET PO SCH (08:15)
[2022-02-01] MEDS: Enoxaparin 40 MG/0.4 ML SYR SUBCUT SCH (15:12)
[2022-02-01] MEDS: Senna TAB 8.6 mg TAB PO SCH (20:19)
[2022-02-02] MEDS: Al Hydrox/Mg Hydrox/Simet LIQ 30 ML UDC PO PRN (06:30)
[2022-02-02] MEDS: Calcium Carb (TUMS) 500 mg CHEW TAB PO PRN (06:31)
[2022-02-02] MEDS: Polyethylene Glycol 3350 17 GM PACKET PO SCH (08:24)
[2022-02-02] MEDS: oxyCODONE SR 20 mg TAB PO SCH ×2 (08:25→21:05)
[2022-02-02] MEDS: Enoxaparin 40 MG/0.4 ML SYR SUBCUT SCH (14:39)
[2022-02-02] MEDS: Senna TAB 8.6 mg TAB PO SCH (21:06)
[2022-02-03] MEDS: Calcium Carb (TUMS) 500 mg CHEW TAB PO PRN ×2 (05:44→16:15)
[2022-02-03 06:06] LABS: Hematocrit 30 % (42-52); Hemoglobin 9.4 g/dL (14.0-18.0); Mean Corpuscular HGB Conc 31 g/dL (31-36); Mean Corpuscular Hemoglobin 27 pg (27-31); Mean Corpuscular Volume 85 fL (80-94); Mean Platelet Volume 6.6 fL (7.4-10.4); Platelet Count 273 10^3/uL (150-450); Red Blood Count 3.55 10^6 /uL (4.18-5.48); Red Cell Distribution Width 22 % (10-15); White Blood Count 6.4 10^3/uL (3.5-10.8)
[2022-02-03 06:47] LABS: Albumin/Globulin Ratio 1.2 (1-3); Calcium 8.6 mg/dL (8.6-10.3); Globulin 2.6 g/dL (2-4); Potassium 4.6 mmol/L (3.5-5.0); Total Bilirubin 0.3 mg/dL (0.2-1.0); Total Protein 5.6 g/dL (6.4-8.9); eGFR CKD-EPI 125.8 (>60)
[2022-02-03] MEDS: oxyCODONE SR 20 mg TAB PO SCH ×2 (07:49→21:22)
[2022-02-03] MEDS: Polyethylene Glycol 3350 17 GM PACKET PO SCH (07:51)
[2022-02-03 09:07] LABS: ABS Lymphocytes 0.2 10^3/ul (1.0-4.8); ABS Monocytes 0.5 10^3/ul (0-0.8); ABS Neutrophils 5.6 10^3/ul (1.5-7.7); ABS Nucleated RBC 0.1 10^3/ul; Eosinophil % 0.1 %; Lymphocyte % 2.6 %; Nucleated Red Blood Cells % 1.1
[2022-02-03 09:10] LABS: RBC Morphology Normal (Normal)
[2022-02-03] MEDS ORDERED: methylPREDNISolone SOD SUCC 125 mg 2 ML VIAL IV PRN (11:02)
[2022-02-03] MEDS ORDERED: Famotidine IV 10 MG/ML 2 ml VIAL (20 mg) IV ONE (13:30)
[2022-02-03] MEDS ORDERED: NS 0.9% IVPB SCH (14:00)
[2022-02-03] MEDS ORDERED: PACLITAXEL IVPB SCH (14:00)
[2022-02-03] MEDS: Enoxaparin 40 MG/0.4 ML SYR SUBCUT SCH (16:14)
[2022-02-03] MEDS: Senna TAB 8.6 mg TAB PO SCH (21:20)
[2022-02-04] MEDS: Calcium Carb (TUMS) 500 mg CHEW TAB PO PRN (05:32)
[2022-02-04] MEDS: oxyCODONE SR 20 mg TAB PO SCH ×2 (10:43→20:47)
[2022-02-04] MEDS: Polyethylene Glycol 3350 17 GM PACKET PO SCH (10:45)
[2022-02-04] MEDS: Enoxaparin 40 MG/0.4 ML SYR SUBCUT SCH (16:41)
[2022-02-04] MEDS: Senna TAB 8.6 mg TAB PO SCH (20:46)
[2022-02-04] MEDS: Al Hydrox/Mg Hydrox/Simet LIQ 30 ML UDC PO PRN (20:49)
[2022-02-05] MEDS: Calcium Carb (TUMS) 500 mg CHEW TAB PO PRN ×2 (05:33→17:49)
[2022-02-05] MEDS: Al Hydrox/Mg Hydrox/Simet LIQ 30 ML UDC PO PRN (05:33)
[2022-02-05] MEDS: oxyCODONE SR 20 mg TAB PO SCH ×2 (09:25→21:07)
[2022-02-05] MEDS: Polyethylene Glycol 3350 17 GM PACKET PO SCH (09:28)
[2022-02-05] MEDS ORDERED: Polyethylene Glycol 3350 17 GM PACKET PO PRN (10:22)
[2022-02-05] MEDS: Enoxaparin 40 MG/0.4 ML SYR SUBCUT SCH (15:07)
[2022-02-05] MEDS: Senna TAB 8.6 mg TAB PO SCH (21:08)
[2022-02-06] MEDS: Al Hydrox/Mg Hydrox/Simet LIQ 30 ML UDC PO PRN (05:34)
[2022-02-06] MEDS: Calcium Carb (TUMS) 500 mg CHEW TAB PO PRN ×2 (05:35→16:09)
[2022-02-06] MEDS: oxyCODONE SR 20 mg TAB PO SCH ×2 (08:28→21:24)
[2022-02-06] MEDS: Enoxaparin 40 MG/0.4 ML SYR SUBCUT SCH (14:39)
[2022-02-06] MEDS: Senna TAB 8.6 mg TAB PO SCH (21:24)
[2022-02-07] MEDS: Calcium Carb (TUMS) 500 mg CHEW TAB PO PRN (03:52)
[2022-02-07] MEDS: oxyCODONE SR 20 mg TAB PO SCH ×2 (08:35→21:21)
[2022-02-07] MEDS ORDERED: Gadoteridol (CONTRAST) 279.3 MG/ML 10 ML IV ONE (10:21)
[2022-02-07] MEDS: Enoxaparin 40 MG/0.4 ML SYR SUBCUT SCH (16:10)
[2022-02-07] MEDS: Senna TAB 8.6 mg TAB PO SCH (21:21)
[2022-02-08] MEDS: Calcium Carb (TUMS) 500 mg CHEW TAB PO PRN ×2 (03:40→21:18)
[2022-02-08] MEDS: oxyCODONE SR 20 mg TAB PO SCH ×2 (08:59→21:16)
[2022-02-08] MEDS: Senna TAB 8.6 mg TAB PO SCH (21:16)
[2022-02-09] MEDS: Calcium Carb (TUMS) 500 mg CHEW TAB PO PRN ×2 (03:31→20:56)
[2022-02-09] MEDS: oxyCODONE SR 20 mg TAB PO SCH ×2 (08:31→20:56)
[2022-02-09 12:48] LABS: Hematocrit 30 % (42-52); Hemoglobin 9.6 g/dL (14.0-18.0); Mean Corpuscular HGB Conc 31 g/dL (31-36); Mean Corpuscular Hemoglobin 27 pg (27-31); Mean Corpuscular Volume 86 fL (80-94); Platelet Count 189 10^3/uL (150-450); Red Blood Count 3.54 10^6 /uL (4.18-5.48); Red Cell Distribution Width 22 % (10-15); White Blood Count 3.7 10^3/uL (3.5-10.8)
[2022-02-09 13:08] LABS: Albumin 3.1 g/dL (3.2-5.2); Albumin/Globulin Ratio 1.1 (1-3); Calcium 8.6 mg/dL (8.6-10.3); Globulin 2.8 g/dL (2-4); Potassium 3.7 mmol/L (3.5-5.0); Total Bilirubin 0.3 mg/dL (0.2-1.0); Total Protein 5.9 g/dL (6.4-8.9); eGFR CKD-EPI 121.7 (>60)
[2022-02-09 15:34] LABS: Anisocytosis 2+
[2022-02-09 15:35] LABS: ABS Lymphocytes 0.3 10^3/ul (1.0-4.8); ABS Monocytes 0.3 10^3/ul (0-0.8); ABS Neutrophils 3.1 10^3/ul (1.5-7.7); Eosinophil % 0.2 %; Nucleated Red Blood Cells % 0.5
[2022-02-09] MEDS ORDERED: methylPREDNISolone SOD SUCC 125 mg 2 ML VIAL IV PRN (16:29)
[2022-02-09] MEDS: Senna TAB 8.6 mg TAB PO SCH (20:56)
[2022-02-10] MEDS: Calcium Carb (TUMS) 500 mg CHEW TAB PO PRN (06:14)
[2022-02-10] MEDS: oxyCODONE SR 20 mg TAB PO SCH ×2 (08:33→22:37)
[2022-02-10] MEDS: Enoxaparin 40 MG/0.4 ML SYR SUBCUT SCH (08:35)
[2022-02-10] MEDS ORDERED: Famotidine IV 10 MG/ML 2 ml VIAL (20 mg) SLOW PUSH ONE (09:00)
[2022-02-10] MEDS ORDERED: PACLITAXEL IVPB SCH (09:30)
[2022-02-10] MEDS ORDERED: NS 0.9% IVPB SCH (09:30)
[2022-02-10] MEDS: Senna TAB 8.6 mg TAB PO SCH (22:37)
[2022-02-11] MEDS: Calcium Carb (TUMS) 500 mg CHEW TAB PO PRN (04:40)
[2022-02-11] MEDS: oxyCODONE SR 20 mg TAB PO SCH ×2 (08:06→21:14)
[2022-02-11] MEDS: Enoxaparin 40 MG/0.4 ML SYR SUBCUT SCH (08:16)
[2022-02-11] MEDS: Senna TAB 8.6 mg TAB PO SCH (21:14)
[2022-02-12] MEDS: Calcium Carb (TUMS) 500 mg CHEW TAB PO PRN (03:37)
[2022-02-12] MEDS: Enoxaparin 40 MG/0.4 ML SYR SUBCUT SCH (08:52)
[2022-02-12] MEDS: oxyCODONE SR 20 mg TAB PO SCH ×2 (08:53→21:09)
[2022-02-12] MEDS: Senna TAB 8.6 mg TAB PO SCH (21:10)
[2022-02-13] MEDS: Calcium Carb (TUMS) 500 mg CHEW TAB PO PRN (03:27)
[2022-02-13] MEDS: oxyCODONE SR 20 mg TAB PO SCH ×2 (09:20→21:18)
[2022-02-13] MEDS: Enoxaparin 40 MG/0.4 ML SYR SUBCUT SCH (09:23)
[2022-02-13] MEDS: Senna TAB 8.6 mg TAB PO SCH (21:19)
[2022-02-14] MEDS: Calcium Carb (TUMS) 500 mg CHEW TAB PO PRN (05:36)
[2022-02-14] MEDS: oxyCODONE SR 20 mg TAB PO SCH ×2 (08:52→21:49)
[2022-02-14] MEDS: Enoxaparin 40 MG/0.4 ML SYR SUBCUT SCH (08:53)
[2022-02-14] MEDS: Senna TAB 8.6 mg TAB PO SCH (21:48)
[2022-02-15] MEDS: Calcium Carb (TUMS) 500 mg CHEW TAB PO PRN (05:37)
[2022-02-15 06:19] VITALS: BP 135/75
[2022-02-15] MEDS: oxyCODONE SR 20 mg TAB PO SCH (08:53)
[2022-02-15] MEDS: Enoxaparin 40 MG/0.4 ML SYR SUBCUT SCH (08:56)
== END 2022-02-15 11:10 | DRG 860 ==
LOC: PMRU 10:55
PROVIDERS: ADMIT Physical Medicine & Rehabilitation; ATTEND Physical Medicine & Rehabilitation

== ENCOUNTER 2022-03-14 14:30 | Inpatient (IN) ==
[2022-03-14 14:57] LABS: PCO2 Arterial 41 mmHg (35-45); PO2 Arterial 62 mmHg (80-100)
[2022-03-14] MEDS ORDERED: Furosemide 40 mg/4 ml IV VIAL IV ONE (15:33)
[2022-03-14] MEDS ORDERED: cefTRIAXone 1 gm/50 mL D5W 1 GM/50 ML BAG IV ONE (15:33)
[2022-03-14] MEDS ORDERED: Azithromycin 500 mg/250 ml NS 500 MG/250 ML BAG IVPB ONE (15:33)
[2022-03-14 16:07] LABS: Hematocrit 25 % (42-52); Hemoglobin 8.2 g/dL (14.0-18.0); Mean Corpuscular HGB Conc 33 g/dL (31-36); Mean Corpuscular Hemoglobin 30 pg (27-31); Mean Corpuscular Volume 89 fL (80-94); Mean Platelet Volume 7.5 fL (7.4-10.4); Platelet Count 188 10^3/uL (150-450); Red Blood Count 2.78 10^6 /uL (4.18-5.48); Red Cell Distribution Width 24 % (10-15); White Blood Count 3.5 10^3/uL (3.5-10.8)
[2022-03-14 16:21] LABS: ABS Lymphocytes 0.3 10^3/ul (1.0-4.8); ABS Monocytes 0.1 10^3/ul (0-0.8); ABS Neutrophils 3.1 10^3/ul (1.5-7.7); ABS Nucleated RBC 0.1 10^3/ul; Eosinophil % 0.2 %; Lymphocyte % 7.8 %; Nucleated Red Blood Cells % 1.4
[2022-03-14 16:57] LABS: Albumin 2.8 g/dL (3.2-5.2); C Reactive Protein 116.4 mg/L (<8.01); Calcium 7.3 mg/dL (8.6-10.3); Globulin 2.7 g/dL (2-4); Potassium 4.2 mmol/L (3.5-5.0); Total Bilirubin 0.5 mg/dL (0.2-1.0); Total Protein 5.5 g/dL (6.4-8.9); eGFR CKD-EPI 133.4 (>60)
[2022-03-14 17:01] LABS: Urine Appearance Clear; Urine Bilirubin Negative (Negative); Urine Color Amber; Urine Glucose Negative (Negative); Urine Ketones Negative (Negative); Urine Specific Gravity 1.025 (1.005-1.030)
[2022-03-14 17:02] LABS: Urine Blood Negative (Negative); Urine Nitrite Negative (Negative); Urine Protein Trace (Negative); Urine Urobilinogen 1.0 (Negative) (Negative); Urine pH 5.5 (5.0-9.0)
[2022-03-14 17:12] LABS: Urine Bacteria 3+ (Absent); Urine Red Blood Cell Trace(0-2/hpf) (Absent); Urine Squamous Epithelial Cell Present (Absent); Urine White Blood Cell 1+(6-10/hpf) (Absent)
[2022-03-14] MEDS ORDERED: Iodixanol (CONTRAST) 320 MG/ML 100 ML SDV IV ONE (17:13)
[2022-03-14 17:31] LABS: Activated Partial Thrombo Time 25.2 seconds (26.0-38.0); INR 1.24 (0.89-1.11)
[2022-03-14 17:41] LABS: High Sensitivity Troponin 1 Hr 546 pg/mL (<20)
[2022-03-14] MEDS ORDERED: Furosemide 40 mg/4 ml IV VIAL IV PRN (19:32)
[2022-03-14] MEDS ORDERED: Albuterol 2.5mg/3 ml (0.083%) NEB.SOLN INH PRN (19:36)
[2022-03-14] MEDS: Enoxaparin 40 MG/0.4 ML SYR SUBCUT SCH (20:49)
[2022-03-14 22:26] LABS: PCO2 Arterial 39 mmHg (35-45); PO2 Arterial 85 mmHg (80-100)
[2022-03-14 22:37] LABS: Ferritin 7325.5 ng/mL (24-336)
[2022-03-14] MEDS: Dexamethasone IV 4 MG/ML VIAL 1 ml VIAL IV SLOW PU SCH (23:48)
[2022-03-15] MEDS: Dexamethasone IV 4 MG/ML VIAL 1 ml VIAL IV SLOW PU SCH ×2 (05:41→12:30)
[2022-03-15] MEDS ORDERED: Furosemide 40 mg/4 ml IV VIAL IV ONE ×2 (07:18→09:16)
[2022-03-15 08:05] LABS: Albumin 2.9 g/dL (3.2-5.2); Calcium 7.5 mg/dL (8.6-10.3); Magnesium 1.9 mg/dL (1.9-2.7); Potassium 3.7 mmol/L (3.5-5.0); Total Bilirubin 0.5 mg/dL (0.2-1.0)
[2022-03-15] MEDS ORDERED: Dextrose 50% Syringe 50 ml 25 GM/50 ML SYRINGE IV PUSH PRN (08:05)
[2022-03-15] MEDS: Dextrose 50% Syringe 50 ml 25 GM/50 ML SYRINGE ONE ×2 (08:08→08:12)
[2022-03-15 08:11] LABS: Albumin/Globulin Ratio 1.1 (1-3); Globulin 2.7 g/dL (2-4); Phosphorus 2.6 mg/dL (2.5-5.0); Total Protein 5.6 g/dL (6.4-8.9); eGFR CKD-EPI 138.7 (>60)
[2022-03-15] MEDS ORDERED: Perflutren Lipid Microsphere 3 ML VIAL ONE (08:15)
[2022-03-15] MEDS ORDERED: oxyCODONE SR 20 mg TAB PO PRN (14:43)
[2022-03-15 16:45] LABS: Hematocrit 26 % (42-52); Hemoglobin 8.2 g/dL (14.0-18.0); Mean Corpuscular HGB Conc 31 g/dL (31-36); Mean Corpuscular Hemoglobin 27 pg (27-31); Mean Corpuscular Volume 87 fL (80-94); Mean Platelet Volume 7.3 fL (7.4-10.4); Platelet Count 170 10^3/uL (150-450); Red Blood Count 3.01 10^6 /uL (4.18-5.48); Red Cell Distribution Width 23 % (10-15); White Blood Count 4.1 10^3/uL (3.5-10.8)
[2022-03-15] MEDS ORDERED: cefTRIAXone 1 gm/50 mL D5W 1 GM/50 ML BAG IV SCH (17:00)
[2022-03-15 17:26] LABS: Calcium 7.6 mg/dL (8.6-10.3); Potassium 3.6 mmol/L (3.5-5.0)
[2022-03-15 17:32] LABS: eGFR CKD-EPI 142.2 (>60)
[2022-03-15] MEDS: oxyCODONE SR 20 mg TAB PO SCH (18:11)
[2022-03-15] MEDS: Azithromycin 500 mg/250 ml NS 500 MG/250 ML BAG IVPB SCH (18:18)
[2022-03-15] MEDS: methylPREDNISolone SOD SUCC 125 mg 2 ML VIAL IV SCH (19:28)
[2022-03-15] MEDS: Enoxaparin 40 MG/0.4 ML SYR SUBCUT SCH (19:29)
[2022-03-16] MEDS: oxyCODONE SR 20 mg TAB PO SCH ×3 (00:55→17:46)
[2022-03-16] MEDS: methylPREDNISolone SOD SUCC 125 mg 2 ML VIAL IV SCH ×3 (03:52→21:28)
[2022-03-16 06:53] LABS: ABS Lymphocytes 0.4 10^3/ul (1.0-4.8); ABS Monocytes 0.1 10^3/ul (0-0.8); ABS Neutrophils 3.6 10^3/ul (1.5-7.7); ABS Nucleated RBC 0.2 10^3/ul; Eosinophil % 0.1 %; Hematocrit 22 % (42-52); Hemoglobin 7.6 g/dL (14.0-18.0); Lymphocyte % 10.1 %; Mean Corpuscular HGB Conc 34 g/dL (31-36); Mean Corpuscular Hemoglobin 30 pg (27-31); Mean Corpuscular Volume 89 fL (80-94); Mean Platelet Volume 7.7 fL (7.4-10.4); Nucleated Red Blood Cells % 4.1; Platelet Count 150 10^3/uL (150-450); Red Blood Count 2.53 10^6 /uL (4.18-5.48); Red Cell Distribution Width 23 % (10-15); White Blood Count 4.1 10^3/uL (3.5-10.8)
[2022-03-16 07:15] LABS: Magnesium 1.9 mg/dL (1.9-2.7); Phosphorus 2.2 mg/dL (2.5-5.0); Potassium 3.5 mmol/L (3.5-5.0); eGFR CKD-EPI 143.5 (>60)
[2022-03-16] MEDS ORDERED: NS 0.9% IVPB ONE (10:49)
[2022-03-16] MEDS ORDERED: MAGNESIUM SULFATE IVPB ONE (10:49)
[2022-03-16] MEDS ORDERED: KCL 20 MEQ/100 ML IVPREMIX 20 MEQ/100 ML BAG IV SCH (11:00)
[2022-03-16] MEDS ORDERED: Magnesium Sulf 4 GM/100 ML IV 4,000 MG/100 ML BAG IVPB ONE (11:00)
[2022-03-16] MEDS ORDERED: Magnesium Sulfate 2 gm BAG 2 GM/50 ML BAG IVPB ONE ×2 (11:10→21:35)
[2022-03-16] MEDS ORDERED: Potassium Chlor 20 meq TAB.ER PO ONE (11:27)
[2022-03-16] MEDS ORDERED: Potassium Acid Phos 500 mg TAB PO ONE (11:38)
[2022-03-16] MEDS ORDERED: Piperacillin/Tazobac ADVAN 3.375 GM in NS 0.9% 100 ml BAG 100 ML IV SCH (12:00)
[2022-03-16] MEDS: Linezolid 600 MG IVPREMIX(*) 600 MG/300 ML BAG IVPB SCH ×2 (12:33→23:25)
[2022-03-16] MEDS ORDERED: Zosyn per Pharmacy NOTE FOLLOW UP SCH (13:00)
[2022-03-16] MEDS ORDERED: Potassium Phosphate IV 15 MMOLE in NS 0.9% 250 ml 250 ML IVPB ONE (13:00)
[2022-03-16 13:49] LABS: PCO2 Arterial 46 mmHg (35-45); PO2 Arterial 60 mmHg (80-100)
[2022-03-16] MEDS ORDERED: Bumetanide IV 10 MG in Premix IV 0 ML IV SCH (14:30)
[2022-03-16] MEDS: Azithromycin 500 mg/250 ml NS 500 MG/250 ML BAG IVPB SCH (17:10)
[2022-03-16] MEDS: ZOSYN 3.375 GM Q8H per EXTENDED INFUSION IV SCH (18:27)
[2022-03-16 21:17] LABS: Calcium 6.6 mg/dL (8.6-10.3); Magnesium 1.7 mg/dL (1.9-2.7); Phosphorus 2.3 mg/dL (2.5-5.0); Potassium 3.2 mmol/L (3.5-5.0); eGFR CKD-EPI 146.3 (>60)
[2022-03-16] MEDS: Sulfamethox/Trimethoprim DS TAB 800/160 mg PO SCH (21:24)
[2022-03-16] MEDS: Enoxaparin 40 MG/0.4 ML SYR SUBCUT SCH (21:26)
[2022-03-16] MEDS ORDERED: Potassium Phosphate IV 5 MMOLE in NS 0.9% 250 ml 250 ML IVPB ONE (22:00)
[2022-03-17] MEDS: oxyCODONE SR 20 mg TAB PO SCH ×3 (00:40→17:05)
[2022-03-17] MEDS: ZOSYN 3.375 GM Q8H per EXTENDED INFUSION IV SCH ×3 (00:43→17:05)
[2022-03-17] MEDS: methylPREDNISolone SOD SUCC 125 mg 2 ML VIAL IV SCH ×3 (04:34→20:34)
[2022-03-17 06:24] LABS: Hematocrit 21 % (42-52); Hemoglobin 6.8 g/dL (14.0-18.0); Mean Corpuscular HGB Conc 32 g/dL (31-36); Mean Corpuscular Hemoglobin 29 pg (27-31); Mean Corpuscular Volume 92 fL (80-94); Platelet Count 133 10^3/uL (150-450); Red Blood Count 2.32 10^6 /uL (4.18-5.48); Red Cell Distribution Width 23 % (10-15)
[2022-03-17 06:58] LABS: CO2 Carbon Dioxide 19 mmol/L (22-32); Chloride 110 mmol/L (101-111); Magnesium 1.6 mg/dL (1.9-2.7); Sodium 141 mmol/L (135-145)
[2022-03-17 07:04] LABS: Blood Urea Nitrogen 7 mg/dL (6-24); Glucose 140 mg/dL (70-100); eGFR CKD-EPI 147.7 (>60)
[2022-03-17 07:28] LABS: Anion Gap 12 mmol/L (2-11)
[2022-03-17] MEDS ORDERED: Magnesium Sulfate IV 1GM/100ML 1 GM/100 ML BAG IV ONE (08:07)
[2022-03-17 08:21] LABS: Albumin 2.2 g/dL (3.2-5.2)
[2022-03-17] MEDS: Sulfamethox/Trimethoprim DS TAB 800/160 mg PO SCH ×2 (08:24→20:34)
[2022-03-17 08:26] LABS: ALT 36 U/L (7-52); Alkaline Phosphatase 323 U/L (35-149); Globulin 2.2 g/dL (2-4); Total Protein 4.4 g/dL (6.4-8.9)
[2022-03-17] MEDS ORDERED: CALCIUM GLUCONATE 1GM/50ML NS 1 GM/50 ML BAG IV ONE (08:57)
[2022-03-17 09:20] LABS: RBC Morphology Normal (Normal)
[2022-03-17 09:21] LABS: ABS Lymphocytes 0.4 10^3/ul (1.0-4.8); ABS Monocytes 0.2 10^3/ul (0-0.8); ABS Neutrophils 5.4 10^3/ul (1.5-7.7); ABS Nucleated RBC 1.6 10^3/ul; Eosinophil % 0.1 %; Lymphocyte % 5.9 %; Nucleated Red Blood Cells % 27.3
[2022-03-17 11:29] LABS: Phosphorus 2.1 mg/dL (2.5-5.0); Potassium Redraw 3.7 mmol/L (3.5-5.0)
[2022-03-17 11:41] LABS: Breast Carcinoma Ag(CA27.29) 511 U/mL (<=38.0)
[2022-03-17 11:44] LABS: CA 15-3 432 U/mL
[2022-03-17] MEDS: Linezolid 600 MG IVPREMIX(*) 600 MG/300 ML BAG IVPB SCH (12:27)
[2022-03-17] MEDS: Azithromycin 500 mg/250 ml NS 500 MG/250 ML BAG IVPB SCH (17:05)
[2022-03-17] MEDS: Potassium & Sodium Phos 250 mg = 1 PACKET PO SCH (20:34)
[2022-03-17] MEDS: Enoxaparin 40 MG/0.4 ML SYR SUBCUT SCH (20:34)
[2022-03-18] MEDS: Linezolid 600 MG IVPREMIX(*) 600 MG/300 ML BAG IVPB SCH ×3 (00:26→23:54)
[2022-03-18] MEDS: ZOSYN 3.375 GM Q8H per EXTENDED INFUSION IV SCH ×3 (00:26→17:33)
[2022-03-18] MEDS: oxyCODONE SR 20 mg TAB PO SCH ×3 (00:54→17:22)
[2022-03-18] MEDS: methylPREDNISolone SOD SUCC 125 mg 2 ML VIAL IV SCH ×3 (03:58→19:49)
[2022-03-18 04:57] LABS: ABS Lymphocytes 0.5 10^3/ul (1.0-4.8); ABS Monocytes 0.3 10^3/ul (0-0.8); ABS Neutrophils 6.7 10^3/ul (1.5-7.7); Eosinophil % 0.3 %; Hematocrit 25 % (42-52); Hemoglobin 7.8 g/dL (14.0-18.0); Lymphocyte % 6.7 %; Mean Corpuscular HGB Conc 32 g/dL (31-36); Mean Corpuscular Hemoglobin 27 pg (27-31); Mean Corpuscular Volume 87 fL (80-94); Mean Platelet Volume 7.6 fL (7.4-10.4); Platelet Count 142 10^3/uL (150-450); Red Blood Count 2.86 10^6 /uL (4.18-5.48); Red Cell Distribution Width 22 % (10-15)
[2022-03-18 05:13] LABS: Calcium 7.7 mg/dL (8.6-10.3); Magnesium 1.9 mg/dL (1.9-2.7); Phosphorus 2.2 mg/dL (2.5-5.0); Potassium 3.7 mmol/L (3.5-5.0)
[2022-03-18 05:42] LABS: Anisocytosis 2+; Basophilic Stippling 1+; Polychromasia 1+
[2022-03-18 05:44] LABS: Stomatocytes 1+; Target Cells 1+
[2022-03-18 06:47] LABS: White Blood Count 5.68 10^3/uL (3.5-10.8)
[2022-03-18 06:51] LABS: RBC Morphology Normal (Normal)
[2022-03-18 07:34] LABS: Albumin 2.7 g/dL (3.2-5.2)
[2022-03-18] MEDS: Potassium Acid Phos 500 mg TAB PO SCH ×2 (07:52→21:44)
[2022-03-18] MEDS: Sulfamethox/Trimethoprim DS TAB 800/160 mg PO SCH (07:52)
[2022-03-18] MEDS: Potassium & Sodium Phos 250 mg = 1 PACKET PO SCH ×2 (07:53→21:44)
[2022-03-18 08:54] LABS: PCO2 Arterial 43 mmHg (35-45); PO2 Arterial 69 mmHg (80-100)
[2022-03-18] MEDS ORDERED: Bumetanide IV 10 MG in Premix IV 0 ML IV SCH ×2 (12:30→13:32)
[2022-03-18] MEDS ORDERED: Propofol 10 mg/ml 100 ML BTL 0 ML ONE (13:35)
[2022-03-18] MEDS ORDERED: Succinylcholine 200 mg VIAL 20 mg/ml 10 ml VIAL (200 mg) ONE ×3 (13:36→14:50)
[2022-03-18] MEDS ORDERED: Rocuronium 50 mg VIAL 10 mg/ml 5 ml VIAL (50 mg) ONE ×2 (13:36→14:39)
[2022-03-18] MEDS ORDERED: Propofol 10 MG/ML 20 ML BTL ONE (14:50)
[2022-03-18] MEDS ORDERED: fentaNYL 100 mcg/2 ml 50 MCG/ML VIAL ONE (15:01)
[2022-03-18] MEDS ORDERED: Propofol 10 mg/ml 100 ML BTL 100 ML ONE (15:32)
[2022-03-18] MEDS ORDERED: Succinylcholine 200 mg VIAL 20 mg/ml 10 ml VIAL (200 mg) IV ONE (16:05)
[2022-03-18] MEDS ORDERED: Propofol 10 MG/ML 20 ML BTL IV PUSH ONE (16:05)
[2022-03-18] MEDS ORDERED: fentaNYL 100 mcg/2 ml 50 MCG/ML VIAL IV SLOW PU ONE (16:05)
[2022-03-18] MEDS ORDERED: fentaNYL 100 mcg/2 ml 50 MCG/ML VIAL IV ONE (16:06)
[2022-03-18] MEDS: Propofol 10 mg/ml 100 ML BTL 100 ML IV SCH ×4 (16:16→23:58)
[2022-03-18] MEDS: Azithromycin 500 mg/250 ml NS 500 MG/250 ML BAG IVPB SCH (16:18)
[2022-03-18 17:02] LABS: Calcium 7.3 mg/dL (8.6-10.3); Potassium 3.9 mmol/L (3.5-5.0); eGFR CKD-EPI 134.4 (>60)
[2022-03-18] MEDS: Pantoprazole VIAL 40 MG VIAL IV SCH (17:33)
[2022-03-18] MEDS: Chlorhexidine MOUTHWASH 0.12% 15 ML UDC SWISH SPIT SCH ×2 (17:33→21:44)
[2022-03-18] MEDS ORDERED: fentaNYL INFUSION 50 mcg/mL VL 2,500 MCG/50 ML VIAL IV SCH (18:00)
[2022-03-18] MEDS: Enoxaparin 40 MG/0.4 ML SYR SUBCUT SCH (19:49)
[2022-03-18 20:48] LABS: Potassium 3.4 mmol/L (3.5-5.0); eGFR CKD-EPI 137.5 (>60)
[2022-03-18] MEDS: fentaNYL INFUSION 50 mcg/mL VL 2,500 MCG/50 ML VIAL IV SCH (21:29)
[2022-03-18] MEDS: Sulfamethox/Trimethoprim SUSP 800-160mg/20 ML UDC PO SCH (22:07)
[2022-03-18] MEDS ORDERED: Norepinephrine 16MCG/ML BAGD5W 4,000 MCG/250 ML BAG IV SCH (23:00)
[2022-03-19 00:51] LABS: Potassium 3.4 mmol/L (3.5-5.0); eGFR CKD-EPI 137.5 (>60)
[2022-03-19] MEDS: ZOSYN 3.375 GM Q8H per EXTENDED INFUSION IV SCH ×3 (00:59→17:26)
[2022-03-19] MEDS: Chlorhexidine MOUTHWASH 0.12% 15 ML UDC SWISH SPIT SCH ×6 (01:00→21:22)
[2022-03-19] MEDS: Propofol 10 mg/ml 100 ML BTL 100 ML IV SCH ×10 (02:31→23:46)
[2022-03-19] MEDS: Pantoprazole VIAL 40 MG VIAL IV SCH ×2 (03:49→15:09)
[2022-03-19] MEDS: methylPREDNISolone SOD SUCC 125 mg 2 ML VIAL IV SCH ×2 (03:49→11:34)
[2022-03-19 04:45] LABS: Albumin 2.9 g/dL (3.2-5.2); Calcium 7.2 mg/dL (8.6-10.3); Globulin 2.9 g/dL (2-4); Magnesium 1.7 mg/dL (1.9-2.7); Total Bilirubin 0.7 mg/dL (0.2-1.0); Total Protein 5.8 g/dL (6.4-8.9); eGFR CKD-EPI 137.5 (>60)
[2022-03-19 05:25] LABS: Phosphorus 3.1 mg/dL (2.5-5.0); Potassium 3.4 mmol/L (3.5-5.0)
[2022-03-19] MEDS ORDERED: Magnesium Sulfate 2 gm BAG 2 GM/50 ML BAG IVPB ONE (07:38)
[2022-03-19] MEDS ORDERED: Midazolam 2 mg/2 ml VIAL 1 mg/ml 2 ml VIAL (2 mg) IV SLOW PU PRN (07:56)
[2022-03-19] MEDS: Potassium & Sodium Phos 250 mg = 1 PACKET PO SCH ×2 (08:11→20:25)
[2022-03-19] MEDS: Potassium Acid Phos 500 mg TAB PO SCH ×2 (08:11→20:25)
[2022-03-19] MEDS: Sulfamethox/Trimethoprim SUSP 800-160mg/20 ML UDC PO SCH ×2 (08:11→20:25)
[2022-03-19] MEDS: KCL 20 MEQ/100 ML IVPREMIX 20 MEQ/100 ML BAG IV SCH ×2 (08:33→10:28)
[2022-03-19 09:18] LABS: PCO2 Arterial 40 mmHg (35-45); PO2 Arterial 66 mmHg (80-100)
[2022-03-19] MEDS ORDERED: Propofol 10 MG/ML 20 ML BTL ONE (09:55)
[2022-03-19] MEDS ORDERED: Rocuronium 50 mg VIAL 10 mg/ml 5 ml VIAL (50 mg) ONE (09:55)
[2022-03-19] MEDS ORDERED: Bumetanide IV 10 MG in Premix IV 0 ML IV SCH (10:00)
[2022-03-19] MEDS: Linezolid 600 MG IVPREMIX(*) 600 MG/300 ML BAG IVPB SCH (11:28)
[2022-03-19] MEDS: fentaNYL INFUSION 50 mcg/mL VL 2,500 MCG/50 ML VIAL IV SCH (12:12)
[2022-03-19] MEDS ORDERED: Rocuronium 50 mg VIAL 10 mg/ml 5 ml VIAL (50 mg) IV ONE (12:18)
[2022-03-19] MEDS ORDERED: Propofol 10 MG/ML 20 ML BTL IV PUSH ONE (12:18)
[2022-03-19 12:44] LABS: Body Fluid Source Broncheoalveolar lav
[2022-03-19 19:01] LABS: Body Fluid Appearance Clear; Body Fluid Color Colorless
[2022-03-19 19:06] LABS: Body Fluid Total Cells Counted 50
[2022-03-19 19:25] LABS: Anion Gap 10 mmol/L (2-11); Blood Urea Nitrogen 17 mg/dL (6-24); CO2 Carbon Dioxide 37 mmol/L (22-32); Calcium 7.4 mg/dL (8.6-10.3); Chloride 85 mmol/L (101-111); Glucose 181 mg/dL (70-100); Magnesium 2.1 mg/dL (1.9-2.7); Sodium 132 mmol/L (135-145); eGFR CKD-EPI 132.5 (>60)
[2022-03-19] MEDS: methylPREDNISolone SOD SUCC 40 mg/ml 1 ml VIAL IV SCH (20:25)
[2022-03-19] MEDS: Enoxaparin 40 MG/0.4 ML SYR SUBCUT SCH (20:25)
[2022-03-19 23:10] LABS: Potassium, Whole Blood 3.7 mmol/L (3.4-4.5)
[2022-03-19] MEDS: Midazolam 2 mg/2 ml VIAL 1 mg/ml 2 ml VIAL (2 mg) IV SLOW PU PRN (23:25)
[2022-03-20] MEDS: Linezolid 600 MG IVPREMIX(*) 600 MG/300 ML BAG IVPB SCH ×2 (00:10→12:28)
[2022-03-20] MEDS: ZOSYN 3.375 GM Q8H per EXTENDED INFUSION IV SCH ×3 (01:17→17:51)
[2022-03-20] MEDS: Chlorhexidine MOUTHWASH 0.12% 15 ML UDC SWISH SPIT SCH ×6 (02:09→21:59)
[2022-03-20] MEDS: Propofol 10 mg/ml 100 ML BTL 100 ML IV SCH ×9 (02:26→22:30)
[2022-03-20] MEDS: Midazolam 2 mg/2 ml VIAL 1 mg/ml 2 ml VIAL (2 mg) IV SLOW PU PRN ×3 (03:29→19:37)
[2022-03-20] MEDS: methylPREDNISolone SOD SUCC 40 mg/ml 1 ml VIAL IV SCH ×3 (04:35→21:59)
[2022-03-20] MEDS: Pantoprazole VIAL 40 MG VIAL IV SCH ×2 (04:35→17:07)
[2022-03-20 06:26] LABS: Anisocytosis 2+; Polychromasia 1+
[2022-03-20 06:27] LABS: Basophilic Stippling 1+
[2022-03-20 06:28] LABS: ABS Lymphocytes 0.4 10^3/ul (1.0-4.8); ABS Monocytes 0.1 10^3/ul (0-0.8); ABS Neutrophils 4.9 10^3/ul (1.5-7.7); ABS Nucleated RBC 1.3 10^3/ul; Eosinophil % 0.2 %; Hematocrit 27 % (42-52); Hemoglobin 9.6 g/dL (14.0-18.0); Lymphocyte % 7.5 %; Mean Corpuscular HGB Conc 36 g/dL (31-36); Mean Corpuscular Hemoglobin 31 pg (27-31); Mean Corpuscular Volume 86 fL (80-94); Mean Platelet Volume 7.9 fL (7.4-10.4); Nucleated Red Blood Cells % 23.8; Platelet Count 166 10^3/uL (150-450); Red Blood Count 3.09 10^6 /uL (4.18-5.48); Red Cell Distribution Width 22 % (10-15)
[2022-03-20 06:30] LABS: Potassium, Whole Blood 3.6 mmol/L (3.4-4.5)
[2022-03-20 06:30] LABS: White Blood Count 4.74 10^3/uL (3.5-10.8)
[2022-03-20 06:32] LABS: Anion Gap 4 mmol/L (2-11); Blood Urea Nitrogen 20 mg/dL (6-24); CO2 Carbon Dioxide 38 mmol/L (22-32); Calcium 7.6 mg/dL (8.6-10.3); Chloride 85 mmol/L (101-111); Glucose 147 mg/dL (70-100); Sodium 127 mmol/L (135-145)
[2022-03-20] MEDS: Potassium & Sodium Phos 250 mg = 1 PACKET PO SCH ×2 (09:18→21:59)
[2022-03-20] MEDS: Potassium Acid Phos 500 mg TAB PO SCH ×2 (09:18→22:00)
[2022-03-20] MEDS: Sulfamethox/Trimethoprim SUSP 800-160mg/20 ML UDC PO SCH ×2 (10:01→22:00)
[2022-03-20] MEDS ORDERED: Dextrose 50% Syringe 50 ml 25 GM/50 ML SYRINGE IV PUSH PRN (11:54)
[2022-03-20 13:00] LABS: Magnesium 2.3 mg/dL (1.9-2.7)
[2022-03-20] MEDS: fentaNYL INFUSION 50 mcg/mL VL 2,500 MCG/50 ML VIAL IV SCH (13:23)
[2022-03-20] MEDS ORDERED: Anidulafungin 200 MG in NS 0.9% 250 ml 200 ML IVPB ONE (15:30)
[2022-03-20] MEDS: Enoxaparin 40 MG/0.4 ML SYR SUBCUT SCH (21:59)
[2022-03-21] MEDS: Propofol 10 mg/ml 100 ML BTL 100 ML IV SCH ×4 (00:40→08:46)
[2022-03-21] MEDS: ZOSYN 3.375 GM Q8H per EXTENDED INFUSION IV SCH ×3 (00:58→17:27)
[2022-03-21] MEDS: Linezolid 600 MG IVPREMIX(*) 600 MG/300 ML BAG IVPB SCH ×2 (00:58→13:07)
[2022-03-21] MEDS: methylPREDNISolone SOD SUCC 40 mg/ml 1 ml VIAL IV SCH ×3 (03:26→18:26)
[2022-03-21] MEDS: Chlorhexidine MOUTHWASH 0.12% 15 ML UDC SWISH SPIT SCH ×6 (03:26→21:37)
[2022-03-21] MEDS: Midazolam 2 mg/2 ml VIAL 1 mg/ml 2 ml VIAL (2 mg) IV SLOW PU PRN (04:17)
[2022-03-21] MEDS: Pantoprazole VIAL 40 MG VIAL IV SCH ×2 (05:14→17:30)
[2022-03-21 05:43] LABS: Hematocrit 23 % (42-52); Mean Corpuscular Volume 87 fL (80-94); Mean Platelet Volume 7.7 fL (7.4-10.4); Platelet Count 162 10^3/uL (150-450); Red Blood Count 2.65 10^6 /uL (4.18-5.48); Red Cell Distribution Width 21 % (10-15); White Blood Count 5.5 10^3/uL (3.5-10.8)
[2022-03-21 06:31] LABS: Albumin 2.8 g/dL (3.2-5.2); Albumin/Globulin Ratio 1.1 (1-3); Alkaline Phosphatase 322 U/L (35-149); Anion Gap 10 mmol/L (2-11); CO2 Carbon Dioxide 38 mmol/L (22-32); Calcium 7.9 mg/dL (8.6-10.3); Chloride 83 mmol/L (101-111); Globulin 2.5 g/dL (2-4); Glucose 216 mg/dL (70-100); Magnesium 2.3 mg/dL (1.9-2.7); Sodium 131 mmol/L (135-145); Total Protein 5.3 g/dL (6.4-8.9); eGFR CKD-EPI 147.7 (>60)
[2022-03-21 06:53] LABS: Blood Urea Nitrogen 11 mg/dL (6-24)
[2022-03-21 06:54] LABS: ALT 27 U/L (7-52)
[2022-03-21 07:27] LABS: Anisocytosis 2+; Basophilic Stippling 1+; Polychromasia 1+
[2022-03-21 07:28] LABS: ABS Basophils 0.1 10^3/ul (0-0.2); ABS Lymphocytes 0.2 10^3/ul (1.0-4.8); ABS Neutrophils 5.2 10^3/ul (1.5-7.7); ABS Nucleated RBC 0.5 10^3/ul; Eosinophil % 0.4 %; Nucleated Red Blood Cells % 8.4
[2022-03-21 07:31] LABS: Hemoglobin 7.7 g/dL (14.0-18.0); Mean Corpuscular Hemoglobin 29 pg (27-31)
[2022-03-21 07:32] LABS: Mean Corpuscular HGB Conc 34 g/dL (31-36)
[2022-03-21] MEDS ORDERED: Bumetanide IV 10 MG in Premix IV 0 ML IV SCH (10:00)
[2022-03-21 10:58] LABS: Triglycerides 2476 mg/dL
[2022-03-21] MEDS: Sulfamethox/Trimethoprim SUSP 800-160mg/20 ML UDC PO SCH ×2 (11:06→21:37)
[2022-03-21] MEDS: Dexmedetomidine 1,000 MCG in NS 0.9% 250 ml 240 ML IV SCH (11:30)
[2022-03-21] MEDS ORDERED: Nystatin SUSPENSION 100,000 UNITS/ML UDC PO ONE (13:34)
[2022-03-21] MEDS: Anidulafungin 100 MG in NS 0.9% 100 ml BAG 100 ML IVPB SCH (14:53)
[2022-03-21] MEDS: Enoxaparin 40 MG/0.4 ML SYR SUBCUT SCH (18:26)
[2022-03-21] MEDS: Bumetanide IV 10 MG in Premix IV 0 ML IV SCH ×2 (19:33→19:40)
[2022-03-21] MEDS: Atropine 1% (ORAL/SL) 15 ML BTL SL PRN (22:17)
[2022-03-21] MEDS: fentaNYL INFUSION 50 mcg/mL VL 2,500 MCG/50 ML VIAL IV SCH ×2 (22:17→22:18)
[2022-03-22] MEDS: ZOSYN 3.375 GM Q8H per EXTENDED INFUSION IV SCH ×3 (00:27→17:45)
[2022-03-22] MEDS: Linezolid 600 MG IVPREMIX(*) 600 MG/300 ML BAG IVPB SCH ×2 (00:27→12:50)
[2022-03-22] MEDS: Dexmedetomidine 1,000 MCG in NS 0.9% 250 ml 240 ML IV SCH ×2 (00:38→13:31)
[2022-03-22] MEDS: methylPREDNISolone SOD SUCC 40 mg/ml 1 ml VIAL IV SCH ×3 (04:22→20:04)
[2022-03-22] MEDS: Pantoprazole VIAL 40 MG VIAL IV SCH ×2 (04:22→17:35)
[2022-03-22] MEDS: Nystatin SUSPENSION 100,000 UNITS/ML UDC PO SCH ×5 (04:23→21:20)
[2022-03-22] MEDS: Midazolam 2 mg/2 ml VIAL 1 mg/ml 2 ml VIAL (2 mg) IV SLOW PU PRN (04:23)
[2022-03-22] MEDS: Chlorhexidine MOUTHWASH 0.12% 15 ML UDC SWISH SPIT SCH ×6 (04:23→21:20)
[2022-03-22 06:06] LABS: Hematocrit 25 % (42-52); Hemoglobin 8.3 g/dL (14.0-18.0); Mean Corpuscular HGB Conc 34 g/dL (31-36); Mean Corpuscular Hemoglobin 30 pg (27-31); Mean Corpuscular Volume 88 fL (80-94); Mean Platelet Volume 7.4 fL (7.4-10.4); Platelet Count 147 10^3/uL (150-450); Red Blood Count 2.77 10^6 /uL (4.18-5.48); Red Cell Distribution Width 21 % (10-15); White Blood Count 5.6 10^3/uL (3.5-10.8)
[2022-03-22] MEDS: Atropine 1% (ORAL/SL) 15 ML BTL SL PRN (06:07)
[2022-03-22 06:12] LABS: ABS Lymphocytes 0.2 10^3/ul (1.0-4.8); ABS Monocytes 0.1 10^3/ul (0-0.8); ABS Neutrophils 5.4 10^3/ul (1.5-7.7); ABS Nucleated RBC 0.2 10^3/ul; Eosinophil % 0.3 %; Lymphocyte % 2.8 %; Nucleated Red Blood Cells % 3.3
[2022-03-22 06:37] LABS: Blood Urea Nitrogen 17 mg/dL (6-24); Calcium 7.9 mg/dL (8.6-10.3); Chloride 85 mmol/L (101-111); Glucose 175 mg/dL (70-100); Magnesium 1.8 mg/dL (1.9-2.7); Sodium 135 mmol/L (135-145); eGFR CKD-EPI 133.4 (>60)
[2022-03-22 06:52] LABS: Potassium, Whole Blood 3.3 mmol/L (3.4-4.5)
[2022-03-22 06:56] LABS: Triglycerides 1097 mg/dL
[2022-03-22 06:58] LABS: Anion Gap 9 mmol/L (2-11); CO2 Carbon Dioxide 41 mmol/L (22-32)
[2022-03-22] MEDS ORDERED: Magnesium Sulfate 2 gm BAG 2 GM/50 ML BAG IVPB ONE (07:27)
[2022-03-22] MEDS: KCL 20 MEQ/100 ML IVPREMIX 20 MEQ/100 ML BAG IV SCH ×2 (08:51→11:09)
[2022-03-22] MEDS: Sulfamethox/Trimethoprim SUSP 800-160mg/20 ML UDC PO SCH ×2 (09:01→21:20)
[2022-03-22] MEDS ORDERED: Bumetanide IV 0.25 MG/ML 4 ml VIAL (1 mg) SLOW PUSH ONE ×2 (09:53→18:36)
[2022-03-22] MEDS: Anidulafungin 100 MG in NS 0.9% 100 ml BAG 100 ML IVPB SCH (15:38)
[2022-03-22] MEDS: Enoxaparin 40 MG/0.4 ML SYR SUBCUT SCH (20:04)
[2022-03-23] MEDS: Linezolid 600 MG IVPREMIX(*) 600 MG/300 ML BAG IVPB SCH ×2 (00:30→13:09)
[2022-03-23] MEDS: ZOSYN 3.375 GM Q8H per EXTENDED INFUSION IV SCH ×2 (01:06→08:21)
[2022-03-23] MEDS: Chlorhexidine MOUTHWASH 0.12% 15 ML UDC SWISH SPIT SCH ×3 (01:07→08:28)
[2022-03-23] MEDS: Dexmedetomidine 1,000 MCG in NS 0.9% 250 ml 240 ML IV SCH (04:47)
[2022-03-23] MEDS: fentaNYL INFUSION 50 mcg/mL VL 2,500 MCG/50 ML VIAL IV SCH (04:48)
[2022-03-23] MEDS: Pantoprazole VIAL 40 MG VIAL IV SCH (05:14)
[2022-03-23] MEDS: methylPREDNISolone SOD SUCC 40 mg/ml 1 ml VIAL IV SCH (05:14)
[2022-03-23 05:24] LABS: Hematocrit 26 % (42-52); Hemoglobin 8.4 g/dL (14.0-18.0); Mean Corpuscular HGB Conc 33 g/dL (31-36); Mean Corpuscular Hemoglobin 29 pg (27-31); Mean Corpuscular Volume 88 fL (80-94); Mean Platelet Volume 7.6 fL (7.4-10.4); Platelet Count 169 10^3/uL (150-450); Red Blood Count 2.93 10^6 /uL (4.18-5.48); Red Cell Distribution Width 22 % (10-15); White Blood Count 6.6 10^3/uL (3.5-10.8)
[2022-03-23 06:06] LABS: Calcium 8.1 mg/dL (8.6-10.3); Magnesium 2.2 mg/dL (1.9-2.7); Potassium 3.5 mmol/L (3.5-5.0); eGFR CKD-EPI 134.4 (>60)
[2022-03-23 07:20] LABS: ABS Lymphocytes 0.1 10^3/ul (1.0-4.8); ABS Monocytes 0.2 10^3/ul (0-0.8); ABS Neutrophils 6.2 10^3/ul (1.5-7.7); ABS Nucleated RBC 0.2 10^3/ul; Eosinophil % 0.2 %; Lymphocyte % 2.1 %; Nucleated Red Blood Cells % 2.7
[2022-03-23 07:21] VITALS: BP 105/54
[2022-03-23] MEDS: KCL 20 MEQ/100 ML IVPREMIX 20 MEQ/100 ML BAG IV SCH ×2 (08:23→11:54)
[2022-03-23] MEDS: Sulfamethox/Trimethoprim SUSP 800-160mg/20 ML UDC PO SCH (08:28)
[2022-03-23] MEDS: Nystatin SUSPENSION 100,000 UNITS/ML UDC PO SCH (08:28)
[2022-03-23] MEDS ORDERED: diazePAM INJ CARPUJECT 5 MG/ML SYRINGE IV PRN (12:35)
[2022-03-23] MEDS ORDERED: Ondansetron 4 mg VIAL 2 MG/ML 2 ml VIAL IV PRN (12:39)
[2022-03-23] MEDS ORDERED: Polyethylene Glycol 3350 17 GM PACKET PO PRN (12:39)
[2022-03-23] MEDS ORDERED: fentaNYL INFUSION 50 mcg/mL VL 2,500 MCG/50 ML VIAL IV SCH (12:46)
[2022-03-23] MEDS ORDERED: Glycopyrrolate IV 0.2 MG/ML 1 ML VIAL IV SLOW PU SCH (13:00)
[2022-03-23] MEDS ORDERED: Morphine 4 MG/ML VIAL (1 ml) IV ONE (13:17)
[2022-03-23] MEDS ORDERED: Morphine 4 MG/ML VIAL (1 ml) ONE (13:17)
[2022-03-23] MEDS ORDERED: diazePAM INJ CARPUJECT 5 MG/ML SYRINGE ONE (13:32)
[2022-03-23] MEDS: diazePAM INJ CARPUJECT 5 MG/ML SYRINGE IV ONE ×2 (13:35→14:29)
== END 2022-03-23 13:55 | disposition expired | DRG 951 ==
LOC: ED 14:30 → SUATTDRO 18:24 → EDHOLD 18:24 → ICU 20:03
PROVIDERS: ADMIT Internal Medicine; ATTEND Surgery Surgical Critical Care